=== PATIENT | male | born 1955 | race Caucasian/White ===

== ENCOUNTER 2021-01-17 10:18 | Outpatient (CLI) | payer MEDICARE, SELFPAY | END 2021-01-17 10:19 | disposition home or self-care (01) | LOC: ANHCOVIDVC 10:18 | PROVIDERS: PCP Nurse Practitioner Adult Health | DX: Z23 Encounter for immunization (principal) | CPT/HCPCS: 0001A; 91300 ==

== ENCOUNTER 2021-02-07 10:16 | Outpatient (CLI) | payer MEDICARE, SELFPAY | END 2021-02-07 10:17 | disposition home or self-care (01) | LOC: ANHCOVIDVC 10:19 | PROVIDERS: PCP Nurse Practitioner Adult Health | DX: Z23 Encounter for immunization (principal) | CPT/HCPCS: 0002A; 91300 ==

== ENCOUNTER 2023-08-18 10:04 | Outpatient (CLI) | payer MEDICARE, SELFPAY ==
[2023-08-18 19:08] LABS: Basophils Absolute Auto 0.1 K/mm3 (0.0-0.1); Basophils Percent Auto 2.1 % (0.2-1.2); Eosinophils Absolute Auto 0.4 K/mm3 (0-0.3); Eosinophils Percent Auto 6.7 % (0-4.4); Hematocrit 48.3 % (42.0-52.0); Hemoglobin 15.7 g/dL (14.0-18.0); Immature Granulocyte Absolute 0.05 K/mm3 (0.00-0.031); Immature Granulocyte Percent A 0.9 % (0-0.5); Lymphocytes Absolute Auto 2.16 K/mm3 (0.9-3.2); Mean Corpuscular HGB Conc 32.5 g/dl (32-36); Mean Corpuscular Hemoglobin 31.6 pg (26-34); Mean Corpuscular Volume 97.2 fl (80-100); Mean Platelet Volume 10.7 fl (7.4-10.4); Monocytes Absolute Auto 0.7 K/mm3 (0.1-0.6); Monocytes Percent Auto 11.3 % (2.6-8.5); Neutrophils Absolute Auto 2.5 K/mm3 (1.3-6.7); Platelet Count Result 288 k/mm3 (150-375); Red Blood Count 4.97 M/mm3 (4.6-6.20); Red Cell Distribution Width 12.1 % (11.5-14.5); White Blood Count 5.8 K/mm3 (4.5-10.0)
[2023-08-18 20:02] LABS: Alanine Aminotransferase 22 U/L (6-50); Albumin Level 4.5 g/dL (3.5-5.1); Alkaline Phosphatase 74 U/L (38-126); Anion Gap 4 mmol/L (8-16); Aspartate Amino Transferase 53 U/L (17-59); Bilirubin,Total 0.8 mg/dL (0.2-1.3); Blood Urea Nitrogen 12 mg/dL (9-20); Calcium 9.3 mg/dL (8.4-10.2); Carbon Dioxide 34 mmol/L (22-30); Chloride 97 mmol/L (98-107); Estimated Glomerular Filt Rate > 60; Free T4 Free Thyroxine 0.97 ng/mL (0.78-2.19); Glucose 87 mg/dL (65-110); Sodium 135 mmol/L (137-145)
[2023-08-22 13:22] LABS: Testosterone Free 67.5 pg/mL (35.0-155.0); Testosterone Total 523 ng/dL (250-1100)
== END 2023-08-18 10:05 | disposition home or self-care (01) ==
PROVIDERS: PCP Nurse Practitioner Adult Health; Visit Provider Nurse Practitioner Adult Health
DX: R53.83 Other fatigue (principal); R63.4 Abnormal weight loss
CPT/HCPCS: 36415; 80053; 84402; 84403; 84439; 84443; 85025

== ENCOUNTER 2023-08-19 11:07 | Outpatient (CLI) | payer MEDICARE, SELFPAY ==
[2023-08-21 14:42] LABS: Albumin 4.4 g/dL (3.8-4.8); Alpha 1 Globulin 0.3 g/dL (0.2-0.3); Alpha 2 Globulin 0.5 g/dL (0.5-0.9); Beta 1 Globulin 0.5 g/dL (0.4-0.6)
[2023-08-24 19:05] LABS: PSA, Free 0.17 ng/mL; PSA, Total 0.9 ng/mL (<=4.0)
== END 2023-08-19 11:08 | disposition home or self-care (01) ==
LOC: ANHGOSHLAB 11:10
PROVIDERS: PCP Nurse Practitioner Adult Health; Visit Provider Nurse Practitioner Adult Health
DX: D72.824 Basophilia (principal); R53.83 Other fatigue
CPT/HCPCS: 36415; 84153; 84154; 84155; 84165; 86038

== ENCOUNTER → 2023-08-21 09:54 | Outpatient (CLI) | payer MEDICARE, SELFPAY ==
--- NOTE | ~2023-08-21 | CT_ITS ---
Clinical Indication: Abnormal weight loss CT Scan of the Chest, Abdomen, and Pelvis without Contrast: Technique: Contiguous sections were acquired throughout the chest, abdomen, and pelvis without IV con trast administration. Dose reduction technique was used on this scan by utilizing automated exposure control and iterative reconstruction technique. The dose-length product (DLP) was 1093.60 mGy-cm. Findings: There is no evidence of any significant mediastinal, hilar or axillary lymphadenopathy. The mediastin al soft tissues appear normal. There is no evidence of pleural or pericardial effusion. The lungs are clear. No pulmonary nodules or infiltrates are noted. Multiple hepatic cysts are present. The spleen, pancreas, gallbladder, adrenals and left kidney are w ithin normal limits. Punctate nonobstructing right renal stone noted. No evidence of aortic aneurysm. No lymphadenopathy. No bowel obstruction or bowel wall thickening. There is no evidence to suggest acute appendicitis. Urinary bladder is unremarkable. No pelvic mass seen. No ascites. Impression: Punctate nonobstructing right renal stone. Multiple hepatic cysts. Reviewed, dictated and finalized at [facility]. Impression: Punctate nonobstructing right renal stone. Multiple hepatic cysts.
== END ==
PROVIDERS: PCP Nurse Practitioner Adult Health; Visit Provider Nurse Practitioner Adult Health
DX: R63.4 Abnormal weight loss (principal); N20.0 Calculus of kidney; K76.89 Other specified diseases of liver
CPT/HCPCS: 71250; 74176

== ENCOUNTER 2023-09-11 08:40 | Outpatient (CLI) | payer MEDICARE, SELFPAY ==
[2023-09-18 18:29] LABS: Testosterone Free 47.9 pg/mL (35.0-155.0); Testosterone Total 366 ng/dL (250-1100)
== END 2023-09-11 08:41 | disposition home or self-care (01) ==
LOC: ANHGOSHLAB 08:41
PROVIDERS: PCP Nurse Practitioner Adult Health; Visit Provider Nurse Practitioner Adult Health
DX: R53.83 Other fatigue (principal); D72.824 Basophilia
CPT/HCPCS: 36415; 84402; 84403

== ENCOUNTER 2023-09-15 11:11 | Outpatient (CLI) | payer MEDICARE, SELFPAY ==
[2023-09-15 19:29] LABS: Cholesterol 195 mg/dL (0-200); HDL Direct 42 mg/dL; Triglycerides 129 mg/dL (<150)
[2023-09-15 19:40] LABS: LDL Cholesterol Direct 114 mg/dL
== END 2023-09-15 11:12 | disposition home or self-care (01) ==
PROVIDERS: PCP Nurse Practitioner Adult Health; Visit Provider Nurse Practitioner Adult Health
DX: E78.5 Hyperlipidemia, unspecified (principal)
CPT/HCPCS: 36415; 80061

== ENCOUNTER 2023-10-06 15:46 | Outpatient (CLI) | payer MEDICARE, SELFPAY ==
[2023-10-06 16:08] LABS: Basophils Absolute Auto 0.1 K/mm3 (0.0-0.1); Basophils Percent Auto 1.3 % (0.2-1.2); Eosinophils Absolute Auto 0.2 K/mm3 (0-0.3); Eosinophils Percent Auto 3.2 % (0-4.4); Hematocrit 43.4 % (42.0-52.0); Hemoglobin 14.8 g/dL (14.0-18.0); Immature Granulocyte Absolute 0.07 K/mm3 (0.00-0.031); Lymphocytes Absolute Auto 1.62 K/mm3 (0.9-3.2); Lymphocytes Percent Auto 22.8 % (18.3-44.2); Mean Corpuscular HGB Conc 34.1 g/dl (32-36); Mean Corpuscular Hemoglobin 31.1 pg (26-34); Mean Corpuscular Volume 91.2 fl (80-100); Mean Platelet Volume 9.4 fl (7.4-10.4); Monocytes Absolute Auto 0.7 K/mm3 (0.1-0.6); Monocytes Percent Auto 10.3 % (2.6-8.5); Neutrophils Absolute Auto 4.4 K/mm3 (1.3-6.7); Neutrophils Percent Auto 61.4 % (45.5-73.1); Platelet Count Result 279 k/mm3 (150-375); Red Blood Count 4.76 M/mm3 (4.6-6.20); Red Cell Distribution Width 11.9 % (11.5-14.5); White Blood Count 7.1 K/mm3 (4.5-10.0)
[2023-10-06 20:26] LABS: Alanine Aminotransferase 25 U/L (6-50); Albumin Level 4.3 g/dL (3.5-5.1); Alkaline Phosphatase 80 U/L (38-126); Anion Gap 7 mmol/L (8-16); Aspartate Amino Transferase 36 U/L (17-59); Bilirubin,Total 0.5 mg/dL (0.2-1.3); Blood Urea Nitrogen 12 mg/dL (9-20); Calcium 8.8 mg/dL (8.4-10.2); Carbon Dioxide 30 mmol/L (22-30); Chloride 93 mmol/L (98-107); Estimated Glomerular Filt Rate > 60; Glucose 78 mg/dL (65-110); Potassium 4.2 mmol/L (3.4-5.0); Sodium 130 mmol/L (137-145)
== END 2023-10-06 15:47 | disposition home or self-care (01) ==
LOC: ANHLAB 15:49
PROVIDERS: PCP Nurse Practitioner Adult Health; Visit Provider Internal Medicine Hematology & Oncology
DX: D72.829 Elevated white blood cell count, unspecified (principal)
CPT/HCPCS: 36415; 80053; 85025; 88184

== ENCOUNTER 2024-04-12 12:23 | Outpatient (CLI) | payer MEDICARE, SELFPAY ==
[2024-04-12 12:40] LABS: Basophils Absolute Auto 0.1 K/mm3 (0.0-0.1); Basophils Percent Auto 1.3 % (0.2-1.2); Eosinophils Absolute Auto 0.2 K/mm3 (0-0.3); Eosinophils Percent Auto 3.2 % (0-4.4); Hematocrit 44.1 % (42.0-52.0); Hemoglobin 14.8 g/dL (14.0-18.0); Immature Granulocyte Absolute 0.06 K/mm3 (0.00-0.031); Lymphocytes Absolute Auto 1.51 K/mm3 (0.9-3.2); Lymphocytes Percent Auto 23.9 % (18.3-44.2); Mean Corpuscular HGB Conc 33.6 g/dl (32-36); Mean Corpuscular Volume 92.3 fl (80-100); Mean Platelet Volume 9.7 fl (7.4-10.4); Monocytes Absolute Auto 0.9 K/mm3 (0.1-0.6); Monocytes Percent Auto 14.4 % (2.6-8.5); Neutrophils Absolute Auto 3.6 K/mm3 (1.3-6.7); Neutrophils Percent Auto 56.2 % (45.5-73.1); Platelet Count Result 271 k/mm3 (150-375); Red Blood Count 4.78 M/mm3 (4.6-6.20); Red Cell Distribution Width 12.3 % (11.5-14.5); White Blood Count 6.3 K/mm3 (4.5-10.0)
[2024-04-12 16:35] LABS: Alanine Aminotransferase 20 U/L (6-50); Albumin Level 4.1 g/dL (3.5-5.1); Alkaline Phosphatase 63 U/L (38-126); Anion Gap 2 mmol/L (4-12); Aspartate Amino Transferase 32 U/L (17-59); Bilirubin,Total 0.7 mg/dL (0.2-1.3); Blood Urea Nitrogen 11 mg/dL (9-20); Carbon Dioxide 30 mmol/L (22-30); Chloride 98 mmol/L (98-107); Estimated Glomerular Filt Rate > 60; Glucose 75 mg/dL (65-110); Potassium 4.5 mmol/L (3.4-5.0); Sodium 130 mmol/L (137-145)
[2024-04-13 15:51] LABS: Blood Urea Nitrogen 11 mg/dL (8-26); Carbon Dioxide 31 mmol/L (22-30); Chloride 93 mmol/L (98-109); Estimated Glomerular Filt Rate > 60; Glucose 79 mg/dL (70-105); Ionized Calcium (POC) 1.22 mmol/L (1.11-1.31); Potassium 4.4 mmol/L (3.5-4.9); Sodium 133 mmol/L (138-146)
== END 2024-04-12 12:24 | disposition home or self-care (01) ==
PROVIDERS: PCP Nurse Practitioner Adult Health; Visit Provider Internal Medicine Hematology & Oncology
DX: D72.829 Elevated white blood cell count, unspecified (principal)
CPT/HCPCS: 36415; 80047; 80053; 85025

== ENCOUNTER 2024-06-28 09:07 | Outpatient (CLI) | payer MEDICARE, SELFPAY ==
[2024-06-28 18:58] LABS: Alanine Aminotransferase 23 U/L (6-50); Albumin Level 4.4 g/dL (3.5-5.1); Alkaline Phosphatase 74 U/L (38-126); Anion Gap 6 mmol/L (4-12); Aspartate Amino Transferase 69 U/L (17-59); Bilirubin,Total 0.6 mg/dL (0.2-1.3); Blood Urea Nitrogen 10 mg/dL (9-20); Carbon Dioxide 33 mmol/L (22-30); Chloride 96 mmol/L (98-107); Cholesterol 193 mg/dL (0-200); Estimated Glomerular Filt Rate > 60; Glucose 80 mg/dL (65-110); HDL Direct 49 mg/dL; Potassium 5.3 mmol/L (3.4-5.0); Sodium 135 mmol/L (137-145); Triglycerides 101 mg/dL (<150)
[2024-06-28 19:09] LABS: LDL Cholesterol Direct 120 mg/dL
[2024-06-28 19:29] LABS: Prostate Specific Antigen 1.2 ng/mL (< OR = 4.0)
[2024-07-03 11:53] LABS: Testosterone Free 83.7 pg/mL (35.0-155.0); Testosterone Total 566 ng/dL (250-1100)
== END 2024-06-28 09:08 | disposition home or self-care (01) ==
LOC: ANHBWCLAB 09:08
PROVIDERS: PCP Nurse Practitioner Adult Health; Visit Provider Nurse Practitioner Adult Health
DX: Z12.5 Encounter for screening for malignant neoplasm of prostate (principal); E78.5 Hyperlipidemia, unspecified; R79.89 Other specified abnormal findings of blood chemistry
CPT/HCPCS: 36415; 80053; 80061; 84153; 84402; 84403; G0103

== ENCOUNTER 2024-07-07 13:32 | Outpatient (CLI) | payer MEDICARE, SELFPAY ==
[2024-07-07 21:15] LABS: Potassium 4.2 mmol/L (3.4-5.0)
== END 2024-07-07 13:33 | disposition home or self-care (01) ==
LOC: ANHBWCLAB 13:34
PROVIDERS: PCP Nurse Practitioner Adult Health; Visit Provider Nurse Practitioner Adult Health
DX: E87.5 Hyperkalemia (principal)
CPT/HCPCS: 36415; 84132

== ENCOUNTER 2024-12-02 07:52 | Outpatient (CLI) | payer MEDICARE, SELFPAY ==
--- OUTSIDE RECORDS SUMMARY | 2024-12-02 07:57 | XMS_ITS | Clinical Summary ---
Author Organization [id number] [place] Address [address] [place] [id number] Care Team Providers Care Electronic Equipment Repairmen Name Role Phone Maribel Castillo NP Primary Care Provider [phone] Allergies No known active allergies Medications lisinopril (PRINIVIL,ZESTR IL) 5 mg tablet TAKE ONE TABLET BY MOUTH ONCE DAILY 90 6 5 Active triamcinolone (NASACORT AQ) 55 mcg nasal inhaler spray 2 spray by intranasal route every day in each nostril 1 4 2 Active cetirizine (ZyrTEC) 10 mg tablet take 1 tablet (10MG) by oral route every day 0 2 Active zolpidem (AMBIEN) 5 mg tablet take 2 tablet (10MG) by oral route every day at bedtime [address] (NexIUM) 40 mg capsule take 1 capsule (40MG) by oral route every day 0 2 Active ALPRAZolam (XANAX) 0.5 mg tablet Take 1 tablet (0.5 mg total) by mouth nightly as needed for anxiety Active buPROPion XL (WELLBUTRIN XL) 300 mg 24 hr tablet Take 1 tablet (300 mg total) by mouth daily Active aspirin 81 mg enteric coated tablet Take 1 tablet (81 mg total) by mouth daily Pt takes in evening. Active Active Problems Problem Noted Date Diagnosed Date Encounter for screening colonoscopy 05/26/2018 Overview (05/26/2018): Added automatically from request for surgery [id number] Immunizations Name Administration Dates Next Due Influenza, Split 11/07/2010 Influenza, Trivalent, IM (MDV) 09/13/2014 MMR 10/02/2011 Surgical History Surgery Date Site/Laterality Comments OTHER SURGICAL HISTORY 11/03/2011 - 11/02/2012 right elbow pain COLONOSCOPY 11/09/2007 CATARACT EXTRACTION 01/02/2024 - 02/01/2024 Right COLONOSCOPY 08/03/2018 - 09/02/2018 Medical History Medical History Date Comments Hx Other Medical 1995 vocal cord surg dina/growths Hx Other Medical 2004 sinus surgery Hx Other Medical vocal chord herbert niya Hx Other Medical sinus surgery Gastroesophageal reflux disease GERD Hypertension Family History Medical History Relation Name Comments Stomach cancer Father Cancer -gastr ic; Cause of : Cancer -gastric Osteoporosis Mother Osteoporosis; Other Mother Alive and well; /Pagents diseaes; Relation Name Status Comments Father (Age 85) Mother Alive Social History Tobacco Use Types Packs/Day Years Used Date Smoking Tobacco: Never Smokeless Tobacco: Never Alcohol Use Standard Drinks/Week Comments Yes 0 (1 standard drink = 0.6 oz pur e alcohol) AUDIT-C Answer Date Recorded Q1: How often do you have a drink containing alcohol? 4 or more times a week 05/11/2024 Q2: How many drinks containi ng alcohol do you have on a typical day when you are drinking? 3 or 4 Q3: How often do you have si x or more drinks on one occasion? Less than monthly 05/11/2024 Personal Safety Answer Date Recorded Have you ever been in or are you currently in a harmful physical or emotional relationship or is someone making you feel afraid or unsafe? Denies 05/12/2024 Sex and Gender Information Value Date Recorded Sex Assigned at Not on file Legal Sex Male 7:57 PM [employer] Gender Identity Not on file Sexual Orientation Not on file Obstetrics History Last Filed Vital Signs Vital Sign Reading Time Taken Comments Blood Pressure 126/79 05/12/2024 10:23 AM CDT Pulse 75 05/12/2024 10:23 AM CDT Temperature 36.7 ??C (98 ??F) 05/12/2024 10:23 AM CDT Respiratory Rate 16 05/12/2024 10:23 AM CDT Oxygen Saturation 100% 05/12/2024 10:23 AM CDT Inhaled Oxygen Concentration - - Weight 93 kg (205 lb) 08/25/2018 8:55 AM CDT Height 180.3 cm (5' 11 ) 08/25/2018 8:55 AM CDT Body Mass Index 28.59 08/25/2018 8:55 AM CDT Plan of Treatment Health Maintenance Due Date Last Done Comments Fall Risk Assessment 1955 Hepatitis C Screening 1955 Hepatitis B Screening 1973 Zoster Vaccine (1 of 2) 2005 Depression Screening 07/21/2018 07/21/2017, 07/14/20 Prostate Cancer Screening-PSA 07/16/2019 07/16/2017 Well Visit 65+ 2020 Covid-19 Vaccine (4 - 2023-2 5 season) 2024 02/14/2021, 02/07/2021, 01/17/2021, Additional history exists Influenza Vaccine (#1) 2024 , 08/30/2022, 08/03/2022, Additional history exists Pneumococcal vaccine 65+ (3 of 3 - PPSV23 or PCV20) 08/06/2026 08/06/2021, 11/30/2019 DTaP/Tdap/Td Vaccine (2 - Td or Tdap) 07/10/2027 07/10/2017 Colon Cancer Screening-Colonoscopy 05/12/2034 05/12/2024, 08/25/2018, 08/03/2008 Colon Cancer Screening-CT Colonography Discontinued 05/12/2024, 08/25/2018, 08/03/2008 Colon Cancer Screening-DNA Stool Discontinued 05/12/2024, 08/25/2018, 08/03/2008 Colon Cancer Screening-FIT Discontinued 05/12, 08/25/2018, 08/03/2008 Colon Cancer Screening-Sigmoidoscopy Discontinued 05/12/2024, 08/25/2018, 08/03/2008 Procedures Procedure Name Priority Date/Time Associated Diagnosis Comments COLONOSCOPY 05/12/2024 8:35 AM CDT PSA SCREEN Routine 07/16/2017 7:43 AM CDT Encounter for screening and preventative care from Last 3 Months or Most Recently Relevant to Health Maintenance Results * Colonoscopy (05/12/2024 8:35 AM CDT) Anatomical Region Laterality Modality Other Narrative Procedure Note Elsa Chambers MD - 05/12/2024 8:35 AM CDT [facility] Patient Name: Nam Sawyer Procedure Date: 05/12/2024 8:35 AM Date of : 1955 Admit Type: Outpatient Age: 68 Gender: Male Attending MD: Elsa Chambers M.D. Room: [facility] ENDOSCOPY ROOM 1 Note Status: Finalized Patient Profile: This is a 68 year old male. Father had history of advanced intra-abdominal cancer. Exact primary etiology is not clear. Procedure: Colonoscopy Indications: Screening in patient at increased risk: Familyhistory of 1st-degree relative with colorectal cancer, Last colonoscopy: August 2018 Referring MD: Maribel Castillo, ANP Providers: Elsa Chambers M.D. Impression: - The entire examined colon is normal. - Internal hemorrhoids. - No specimens collected. Recommendation: - Repeat colonoscopy in 6 years for screeningpurposes. Medicines: Monitored Anesthesia Care Complications: No immediate complications. Estimated Blood Loss: Estimated blood loss: none. Procedure: Pre-Anesthesia Assessment: - Prior to the procedure, a History and Physicalwas performed, and patient medications and allergieswere reviewed. The patient's tolerance of previous anesthesia was also reviewed. The risks andbenefits of the procedure and the sedation options and risks were discussed with the patient. All questions were answered, and informed consent was obtained. Prior Anticoagulants: The patient has taken noanticoagulant or antiplatelet agents. ASA Grade Assessment: Per anesthesia note and evaluation. After reviewing the risks and benefits, the patient was deemed in satisfactory condition to undergo the procedure. The benefits, risks and alternatives of theprocedure and sedation were discussed and informed consentwas obtained. All questions were answered. Please referto the signed informed consent document in the medical record. The bowel preparation used was Miralax and bisacodyl tablets via split dose instruction. The scope was passed under direct vision. The Pediatric Colonoscope [id number]-H190L [id number] was introducedthrough the anus and advanced to the the cecum, identifiedby appendiceal orifice and ileocecal valve. Thequality of the bowel preparation was good. Bowel prep was administered using a split dose. Findings: The perianal and digital rectal examinations were normal. The cecum appeared normal. The colon (entire examined portion) appeared normal. No polyps and no mass lesions noted. Internal hemorrhoids were found during retroflexion. The hemorrhoids were small. Electronically signed by Elsa Chambers M.D. Elsa Chambers M.D. 05/12/2024 9:58:08 AM Number of Addenda: 0 Note Initiated On: 05/12/2024 8:35 AM Procedure Code(s): --- Professional --- G0105, Colorectal cancer screening; colonoscopy on individual at high risk Diagnosis Code(s): --- Professional --- Z80.0, Family history of malignant neoplasm of digestive organs K64.8, Other hemorrhoids CPT copyright 2020 [employer]. All rights reserved. The codes documented in this report are preliminary and upon certified medical coder reviewmay be revised to meet current compliance requirements. Recognized by the [employer] for promoting quality in endoscopy us Elsa Chambers MD ENDOSCOPY PROCEDURES Final Result * PSA screen (07/16/2017 7:43 AM CDT) PSA 0.6 < OR = 4.0 ng/mL [facility] - [facility] Comment: The total PSA value from this assay system is standardized against the WHO standard. The test result will be approximately 20% lower when compared to the equimolar-standardized total PSA (Alka Hyndman). Comparison of serial PSA results should be interpreted with this fact in mind. This test was performed using the Siemens chemiluminescent method. Values obtained from different assay methods cannot be used interchangeably. PSA levels, regardless of value, should not be interpreted as absolute evidence of the presence or absence of disease. Blood specimen (specimen) 07/16/2017 7:43 AM CDT 07/16/2017 7:43 AM CDT Narrative [facility] - 07/17/2017 3:45 AM CDT FASTING:YES Resulting Agency Comment Performing Organization Information: ?Site ID: PAT ?Name: [facility] ?[facility] [id number] [address] ?Director: Juan Ramon Verdugo D.O., MPH Adrian Arboleda LAB BLOOD ORDERABLES Final Resul t [facility] from Last 3 Months or Most Recently Relevant to Health Maintenance Insurance [employer] [facility] [employer] MEDICARE Advance Directives For more information, please contact: [phone] * Full Code (Latest Code Status on File) Date Activated Date Inactivated Comments 05/12/2024 8:56 AM 05/12/2024 2:35 PM * Full Code Date Activated Date Inactivated Comments 05/12/2024 8:56 AM 05/12/2024 8:56 AM * Full Code Date Activated Date Inactivated Comments 08/25/2018 8:46 AM 08/25/2018 12:52 PM * Full Code Date Activated Date Inactivated Comments 08/25/2018 8:46 AM 08/25/2018 8:46 AM Care Teams Electronic Equipment Repairmen Relationship Specialty Start Date End Date Maribel Castillo NP PCP - General Nurse Practitioner 05/26/18
--- OUTSIDE RECORDS SUMMARY | 2024-12-02 07:57 | XMS_ITS | Data Portability ---
Author Organization [place] [facility], Main Office Address [address] [place] [address] Care Team Providers Care Cylinder Handler Name Role Phone FATUMA CALDERA Primary Care Provider [phone] FATUMA CALDERA Referring Provider [phone] Assessment Encounter Date Assessment Date Assessment LastModified by Organization Details LastModified Time 05/09/2023 05/09/2023 I have reconciled the patient's medications post their discharge from inpatient facility. Not available 05/09/2023 15:27:33 Plan of Treatment Reminders Order Date Submit Date Provider Last Modified By Organization Details Last Modified Time Details Appointments None recorded. Lab testosteron e, free + total, serum 2022 023 [facility] (Lab), [address] [place], [address], 3 12:12:05 CBC 2022 023 [facility] (Lab), [address] [place], [address], 3 12:50:05 TSH, serum or plasma 2022 023 [facility] (Lab), [address] [place], [address], 3 14:41:47 vitamin B12 + folate, serum or blood 2022 023 [facility] (Lab), [address] [place], [address], 3 08:19:43 CMP, serum or plasma 2022 023 [facility] ([facility]), [address] [place], [address], 3 14:14:16 Referral cognitive behavioral therapy referral 2022 023 [email or web address] Not available 3 09:28:23 physical therapist referral - [facility]AL [facility] TREAT 2022 023 [email or web address] Not available 22:36:08 Procedures None recorded. Surgeries None recorded. Imaging XR, ankle, 3 or more view 2022 023 [email or web address] [facility] [place], [address], [place], [address], 3 22:36:08 XR, hand, 3 or more view 2022 023 [email or web address] [facility] [place], [address], [place], [address], 3 22:36:08 Medication Orders zolpidem 10 mg tablet 2022 023 [id number], [address] [place], [address], 3 16:00:49 duloxetine 30 mg capsule,del ayed release 2022 023 [email or web address] [id number], [address], [place], [address], 3 14:23:52 alprazolam 0.5 mg tablet 2022 023 YANY [id number] In [facility], [address] , [place], [address], 3 16:29:35 buspirone 5 mg tablet 202204 023 YANY [id number], [address] [facility], [place], [address], 3 14:30:32 Patient TargetsNo targets recorded. Patient Instructions Encounter Date Encounter Id Patient Instructions Last Modified By Organization Details Last Modified Time 04/15/2023 [id number] Fu in 4-6 weeks for insomnia, anxiety, fatigue Not available 04/15/2023 11:37:12 06/06/2023 [id number] mo fu on buspar Not availab le 06/06/2023 14:39:15 Reason for Referral Cognitive Behavioral Therapy Referral for Major depressive disorder Referring Physician: Fatuma Caldera, Family Medicine, Encounter Date: 05/09/2023 Physical Therapist Referral for Left Achilles tendinitis EVAL AND TREAT Referring Physician: Esdras Hurt, Orthopedics, Encounter Date: 07/08/2023 Results Created Date Observation Date Name Description Value Unit Range Abnormal Flag Note LastModifiedBy Organization Detail LastModifiedTime 04/16/2004/16/2023 CBC W/O DIFFE RENTI AL white blood cells 5.8 x10'3 /uL 4.2-10 .8 Not Available [facility] (Lab) [address] [place], [address], 04/16/2023 12:50:05 04/16/20 23 04/16/2023 CBC W/O DIFFE RENTI AL red blood cells 4.72 x10'6 /uL 4.10-5 .80 Not Available [facility] (Lab) [address] [place], [address], 04/16/2023 12:50:05 04/16/20 23 04/16/2023 CBC W/O DIFFE RENTI AL hemoglobin 15.0 g/dL 13.2-1 7.0 Not Available [facility] (Lab) [address] [place], [address], 04/16/2023 12:50:05 04/16/20 23 04/16/2023 CBC W/O DIFFE RENTI AL hematocrit 43.9 % 39.3-5 0.0 Not Available [facility] (Lab) [address] [place], [address], 04/16/2023 12:50:05 04/16/20 23 04/16/2023 CBC W/O DIFFE RENTI AL mean red cell volume 93.0 fL 80.0-9 7.0 Not Available [facility] (Lab) [address] [place], [address], 04/16/2023 12:50:05 04/16/20 23 04/16/2023 CBC W/O DIFFE RENTI AL mean red cell hemoglobin 31.8 pg 27.0-3 3.0 Not Available [facility] (Lab) [address] [place], [address], 04/16/2023 12:50:05 04/16/20 23 04/16/2023 CBC W/O DIFFE RENTI AL mean RBC HGB concentratio n 34.2 g/dL 31.0-3 6.0 Not Available [facility] (Lab) [address] [place], [address], 04/16/2023 12:50:05 04/16/20 23 04/16/2023 CBC W/O DIFFE RENTI AL red cell distribution width 11.9 % 11.8-1 5.5 Not Available [facility] (Lab) [address] [place], [address], 04/16/2023 12:50:05 04/16/20 23 04/16/2023 CBC W/O DIFFE RENTI AL platelets 305 x10'3 /uL 150-40 0 Not Available [facility] (Lab) [address] [place], [address], 04/16/2023 12:50:05 04/16/20 23 04/16/2023 CBC W/O DIFFE RENFARTUN AL mean platelet volume 10.5 fL 9.0-12 .4 Not Available [facility] (Lab) [address] [place], [address], 04/16/2023 12:50:05 04/16/20 23 04/16/2023 COMPR EHENS ANICETO METAB OLIC PANEL sodium 133 mmol/ L 137-14 5 low Not Available [facility] (Lab) [address] [place], [address], 04/16/2023 14:14:16 04/16/20 23 04/16/2023 COMPR EHENS ANICETO METAB OLIC PANEL potassium 4.4 mmol/ L 3.5-5. 1 Not Available [facility] (Lab) [address] [place], [address], 04/16/2023 14:14:16 04/16/20 23 04/16/2023 COMPR EHENS ANICETO METAB OLIC PANEL chloride 94 mmol/ L 98-107 low Not Available [facility] (Lab) [address] [place], [address], 04/16/2023 14:14:16 04/16/20 23 04/16/2023 COMPR EHENS ANICETO METAB OLIC PANEL carbon dioxide 30 mmol/ L 22-30 Not Available [facility] (Lab) [address] [place], [address], 04/16/2023 14:14:16 04/16/20 23 04/16/2023 COMPR EHENS ANICETO METAB OLIC PANEL anion gap 13.4 mmol/ L 14-22 low Not Available [facility] (Lab) [address] [place], [address], 04/16/2023 14:14:16 04/16/20 23 04/16/2023 COMPR EHENS ANICETO METAB OLIC PANEL glucose 85 mg/dL 70-99 Not Available [facility] (Lab) [address] [place], [address], 04/16/2023 14:14:16 04/16/20 23 04/16/2023 COMPR EHENS ANICETO METAB OLIC PANEL BUN 10 mg/dL 8-19 Not Available [facility] (Lab) [address] [place], [address], 04/16/2023 14:14:16 04/16/20 23 04/16/2023 COMPR EHENS ANICETO METAB OLIC PANEL creatinine 0.94 mg/dL 0.66-1 .25 Not Available [facility] (Lab) [address] [place], [address], 04/16/2023 14:14:16 04/16/20 23 04/16/2023 COMPR EHENS ANICETO METAB OLIC PANEL GFR >60 Refer ence Range : [place] ge GFR Healt hy Adult : >60 mL/mi n/1.7 3 m2 Chron ic Kidne y Disea se: 15-60 mL/mi n/1.7 3 m2 Kidne y Failu re: <15/m L/min /1.73 m2 www.n iddk. nih.g ov The MDRD study equat ion has not been valid ated in child ana maria <18 years of age; pregn ant women ; the elder ly >85 years of age; or in some racia l or ethni c subgr oups, such as Hispa nics. Outsi de the valid ated edie eters , estim ated GFR is less accur ate, requi ring clini andreina judgm ent on a case- by-ca se basis . Clini andreina inter preta tion for other races and ages must be made by the clini noy. The MDRD study equat ion has not been valid ated for the evalu ation of serum creat inine relat ed to nutri binta l statu s or medic ation usage . For perso ns <18 years of age, a pedia tric GFR calcu lator is avail able on the NKF websi te: https ://ww w.kid jeanine.samuel jarrell/pr ofess ional s/kdo qi/gf r_cal culat or Not Available [facility] (Lab) [address] [place], [address], 04/16/2023 14:14:16 04/16/20 23 04/16/2023 COMPR EHENS ANICETO METAB OLIC PANEL alkaline phosphatase 61 U/L 38-126 Not Available [facility] (Lab) [address] [place], [address], 04/16/2023 14:14:16 04/16/20 23 04/16/2023 COMPR EHENS ANICETO METAB OLIC PANEL alanine aminotransfe rase 24 U/L 0-50 Not Available [facility] (Lab) [address] [place], [address], 04/16/2023 14:14:16 04/16/20 23 04/16/2023 COMPR EHENS ANICETO METAB OLIC PANEL aspartate aminotransfe rase 30 U/L 15-46 Not Available [facility] (Lab) [address] [place], [address], 04/16/2023 14:14:16 04/16/20 23 04/16/2023 COMPR EHENS ANICETO METAB OLIC PANEL bilirubin, total 0.60 mg/dL 0.20-1 .30 Not Available [facility] (Lab) [address] [place], [address], 04/16/2023 14:14:16 04/16/20 23 04/16/2023 COMPR EHENS ANICETO METAB OLIC PANEL calcium 9.0 mg/dL 8.4-10 .2 Not Available [facility] (Lab) [address] [place], [address], 04/16/2023 14:14:16 04/16/20 23 04/16/2023 COMPR EHENS ANICETO METAB OLIC PANEL total protein 6.7 g/dL 6.3-8. 2 Not Available [facility] (Lab) [address] [place], [address], 04/16/2023 14:14:16 04/16/20 23 04/16/2023 COMPR EHENS ANICETO METAB OLIC PANEL albumin 3.8 g/dL 3.0-4. 4 Not Available [facility] (Lab) [address] [place], [address], 04/16/2023 14:14:16 04/16/20 23 04/16/2023 COMPR EHENS ANICETO METAB OLIC PANEL globulin 2.9 g/dL 2.6-4. 2 Not Available [facility] (Lab) [address] [place], [address], 04/16/2023 14:14:16 04/16/20 23 04/16/2023 COMPR EHENS ANICETO METAB OLIC PANEL A/G ratio 1.3 ratio 1.0-2. 0 Not Available [facility] (Lab) [address] [place], [address], 04/16/2023 14:14:16 04/16/20 23 04/16/2023 TSH W/REF ROWDY FT4 TSH with reflex free T4 1.840 uIU/m L 0.465- 4.680 Not Available [facility] (Lab) [address] [place], [address], 04/16/2023 14:41:47 04/16/2004/16/2023 VITAM IN B12 (KARRI JOSHUA ) vb12 595 pg/mL 239-93 1 Not Available [facility] (Lab) [address] [place], [address], 04/16/2023 15:17:33 04/16/20 23 04/16/2023 FOLAT E, SERUM /PLAS MA folate >20.0 NG/mL 2.76-2 0.0 high Not Available [facility] (Lab) [address] [place], [address], 04/16/2023 15:17:36 04/16/2004/23/2023 TESTO STERO NE, FREE+ TOTAL LC/MS testosterone , total, lc/MS 384.1 NG/dL 264.0- 916.0 This [facility] LC/MS -MS metho d is curre ntly certi fied by the CDC Hormo ne Stand ardiz ation Progr am (HoSt ). Adult male refer ence inter víctor is based on a popul ation of healt hy nonob alfredito males (BMI <30) betwe en 19 and 39 years old. Jyothi archer et.al . JCEM 2017, 102;1 161-1 173. PMID: 10441 103. Not Available [facility] (Lab) [address] [place], [address], 04/23/2023 12:12:05 04/16/20 23 04/23/2023 TESTO STERO NE, FREE+ TOTAL LC/MS testosterone , free 13.17 NG/dL 5.00-2 1.00 Not Available [facility] (Lab) [address] [place], [address], 04/23/2023 12:12:05 04/16/20 23 04/23/2023 TESTO STERO NE, FREE+ TOTAL LC/MS % free testosterone 3.43 % 1.50-4 .20 Perfo rmed at: [facility] - [facility] Swati montiel [address] [facility] , [place] [address] Lab Direc tor: Nikki baech MD, Phone : [phone] Not Available [facility] (Lab) [address] [place], [address], 04/23/2023 12:12:05 01/09/20 23 DEXA, axial skele ton [facility] [address] [place] [address] Patien t Name: CELESTINO DODD Access ion #: [id number] Sex: M : 1955 2 Locati on: RA2 Attend ing Physic aleksandar: KELLY CALDERA Orderi Physic aleksandar: KELLY CALDERA Exam Date: 01/09/20 1:03 PM Exam Name: XR DEXA AXIAL/ HIP/PE LVIS/S PINE Admitt ing Diagno sis(es ): RADIOL OGY REPORT - FINAL EXAM: XR DEXA AXIAL/ HIP/PE LVIS/S PINE HISTOR Y: BONE DENSIT Y FINDIN G COMPAR MOUSTAPHA: None. TECHNI QUE: TECHNI QUE: Dual energy x-ray of absorp tion examin ation of the bilate ral hips and lumbar spine in AP projec tion was perfor med. FINDIN GS: Lumbar Spine (L1-L4 ): The mean bone minera l densit y is 1.59 g/cm2 hydrox yapati te, correl ating with a T-scor e of 3.3. Bilate ral hips: The mean bone minera l densit y is 1.319 g/cm2 calciu m hydrox yapati te, correl ating with a T-scor e of 2.5. Page 1 of 2 [facility] Yoli Name: CELESTINO DODD Access ion #: [id number] Sex: M : 1955 2 Exam Date: 01/09/20 1:03 PM Exam Name: XR DEXA AXIAL/ HIP/PE LVIS/S PINE Admitt ing Diagno sis(es ): IMPRES GUERO: 1. The patien t's lumbar spine T-scor e is consis tent with a normal bone densit y. 2. The patien t's bilate ral hip T-scor e is consis tent with a normal bone densit y. Accord ing to the World Health Organi zation , T-scor e values greate r than -1.0 are normal , values betwee n -1.0 and -2.5 are catego rized as osteop enia, T-scor e of -2.5 or more are catego rized as osteop orosis . Create d and electr onical ly signed by: Jose Armando rider MD Signed Date: 01/09/20 3:16 PM (CT) Dictat ed by: Jose Armando rider MD (CT) (CT) Page 2 of 2 [email or web address] [facility] (Imaging) [address] [place], [address], 01/14/2023 11:42:03 07/08/20 23 XR, hand, 3 or more view No observ ation record ed. [facility] [place] [address], [place], [address], 07/16/2023 09:11:46 07/08/20 XR, ankle , 3 or more view No observ ation record ed. [facility] [place] [address], [place], [address], 07/09/2023 09:06:27 Result Notes None recorded. Problems Name Problem SNOMED Code Status Onset Date Resolution Date Notes Provider Name and Address Organization Details Recorded Time Tenosynov itis of right radial styloid 04894166274 976062 Active 2021 Not Available [facility] 3 13:52:12 Tenosynov itis of left radial styloid 20946726114 831685 Active 2021 Not Available [facility] 3 13:52:12 Pain of left hand 40264772428 9103 Active 2021 Not Available [facility] 3 13:52:12 Pain of left wrist 40382185614 9102 Active 2021 Not Available [facility] 3 13:52:12 Periphera l vascular disease 485726301 Active 2018 Not Available [facility] 3 13:52:12 Anxiety 66010762 Active 2017 Not Available [facility] 3 13:52:12 Essential hypertens ion 92498128 Active 2017 Not Available [facility] 3 13:52:12 Varicose veins of lower extremity 90196440 Active 2018 Not Available [facility] 3 13:52:12 Psoriasis 2893223 Completed 201705/26/2018 Not Available [facility] 3 19:32:03 Allergic rhinitis 60936784 Active 2022 Not Available [facility] 3 13:52:12 Fatigue 22015509 Active 2022 Not Available [facility] 3 13:52:13 Insomnia 318523680 Active 2022 Not Available [facility] 3 13:52:12 Impacted cerumen in left ear 07606930952 55052 Active 2022 Not Available [facility] 3 13:52:12 Heartburn 93607191 Active 2022 Not Available [facility] 3 13:52:12 Major depressiv e disorder 854775093 Active 2022 Not Available [facility] 3 13:52:12 Panic attack 541900310 Active 2022 Not Available [facility] 3 13:52:12 Pain of left ankle joint 84312137636 041780 Active 2022 Not Available [facility] 3 13:52:12 Left Achilles tendiniti s 66473952342 9102 Active 2022 Not Available [facility] 3 13:52:12 Problem Notes None recorded. Procedures Surgical History Date Name Laterality Status Provider Name and Address Organization Details Recorded Time 05/09/20 Transitional_Ca re_Management completed Fatuma Felix RN [employer] 05/09/2023 15:27:33 04/15/20 Cerumen Removal completed Fatuma Caldera NP [address] [facility] [address], [place], [address], [facility] [employer] [facility] 04/15/2023 11:36:34 08/20/20 18 Colonoscopy completed Not Available [facility] 01/02/20 19:31:33 Sinus Surgery completed Not [facility] 01/01/2023 19:31:33 Imaging Results Imaging Date Name Status LastModified by Organiz ation Details LastModified Time 01/08/2023 DEXA, axial skeleton completed [email or web address] [facility] ([facility]) [address] [place], [address], 01/14/2023 11:42:03 07/08/2023 XR, hand, 3 or more view completed [facility] [place] [address], [place], [address], 07/16/2023 09:11:46 07/08/2023 XR, ankle, 3 or more view completed [facility] [place] [address] [facility] [address], [place], [address], 07/09/2023 09:06:27 Procedure Notes None recorded. Medical Equipment None Reported. Allergies No known drug allergies Medications Name Sig Start Date Stop Date Status Note LastModified by Organization Details LastModified Time buspirone 5 mg tablet TAKE 1 TABLET BY MOUTH TWICE A DAY active Not Available Not Available No t Available cefuroxim e axetil 250 mg tablet 02/10 completed Not Available Not Available Not Available lidocaine HCl 2 % mucosal jelly Take 200 mg by mucous route. 02/10 completed Not Available Not Available Not Available aspirin 81 mg tablet,de layed release TAKE 1 TABLET BY MOUTH EVERY DAY active Not Available Not Available No t Available triamcino lone acetonide 0.1 % topical cream APPLY A THIN LAYER TO THE AFFECTED AREA(S) BY TOPICAL ROUTE 2 TIMES PER DAY active Not Available Not Available No t Available alprazola m 0.5 mg tablet TAKE 1 TABLET BY MOUTH EVERY DAY NEEDED for panic active Not Available Not Available No t Available Kenalog 10 mg/mL suspensio n for injection In office injectio n administ ered by the provider 10/15 completed ND: [id number] 4-20 Not Available Not Available Not Available hydroxyzi ne HCl 25 mg tablet TAKE 1-2 TABLETS (25-50 MG TOTAL) BY MOUTH 3 (THREE) TIMES DAILY NEEDED FOR ITCHING. active Not Available Not Available No t Available lisinopri l 5 mg tablet TAKE 1 TABLET BY MOUTH EVERY DAY active Not Available Not Available No t Available levofloxa telma 750 mg tablet Take 1 tablet every day by oral route. 05/26 completed Not Available Not Available Not Available zolpidem 10 mg tablet 1 tab po daily prn sleep 05/09 completed Not Available Not Available Not Available sertralin e 50 mg tablet TAKE 1 TABLET BY MOUTH EVERY DAY 05/09 completed panic attack Not Available Not Available Not Available escitalop lissett 10 mg tablet Take 1 tablet every day by oral route. 04/30 completed Not Available Not Available Not Available duloxetin e 30 mg capsule,d elayed release TAKE 1 CAPSULE BY MOUTH EVERY DAY 06/06 completed stopped taking on May 26 Took for 14 days Not Available Not Available Not Available diazepam 5 mg-7.5 mg-10 mg rectal kit Insert 10 mg by rectal route. 11/30 completed Not Available Not Available Not Available Zyrtec 2017 active Not Available Not Available Not Avai lable ropivacai ne (PF) 5 mg/mL (0.5 %) injection solution Take 2 mg by injectio n route. 10/15 completed Not Available Not Available Not Available Nexium 24HR 10/15 completed Not Available Not Available Not Available Flucelvax Quad 60 mcg (15 mcg x 4)/0.5 mL intramusc ular susp 08/06 completed Not Available Not Available Not Available Vitals Date Recorded Body mass index (BMI) Body height Oxygen saturation Oxygen saturation in Arterial blood by Pulse oximetry Heart rate Respiratory rate Body temperature Body weight Systolic blood pressure Diastolic blood pressure Provider Name and Address Organization Details Last Updated DateTime 3 30.3 kg/m2 180.34 cm 97 % 97 % 91 /min 16 /min 97.9 [degF] 39242.1 9 g 128 mm[Hg] 84 mm[Hg] Not Available [facility] 3 19:31:36 Date Recorded Body height Body mass index (BMI) Body weight Body temperature Heart rate Oxygen saturation Oxygen saturation in Arterial blood by Pulse oximetry Respiratory rate Systolic blood pressure Diastolic blood pressure Provider Name and Address Organization Details Last Updated DateTime 3 180.34 cm 28.9 kg/m2 52023.6 2 g 98 [degF] 88 /min 99 % 99 % 16 /min 136 mm[Hg] 82 mm[Hg] Nora Reeves RN [facility] 3 10:57:39 Date Recorded Body height Body mass index (BMI) Body weight Body temperature Heart rate Oxygen saturation Oxygen saturation in Arterial blood by Pulse oximetry Systolic blood pressure Diastolic blood pressure Provider Name and Address Organization Details Last Updated DateTime 3 180.34 cm 27.5 kg/m2 22304.1 5 g 97.2 [degF] 97 /min 100 % 100 % 142 mm[Hg] 100 mm[Hg] Fatuma Felix RN [facility] 3 15:29:37 Date Recorded Body height Body mass index (BMI) Body weight Body temperature Heart rate Respiratory rate Oxygen saturation Oxygen saturation in Arterial blood by Pulse oximetry Systolic blood pressure Diastolic blood pressure Provider Name and Address Organization Details Last Updated DateTime 3 180.34 cm 27.8 kg/m2 71215.2 8 g 97.1 [degF] 90 /min 20 /min 98 % 98 % 138 mm[Hg] 82 mm[Hg] Fatuma Felix RN [facility] 3 14:10:33 Date Recorded Body height Body mass index (BMI) Body weight Provider Name and Address Organization Details Last Updated DateTime 07/08/2023 180.34 cm 27.9 kg/m2 87345.47 g CAROLINA Magana [facility] 07/08/2023 10:43:11 Social History Question Answer Notes LastModified by Organization Details LastModified Time Tobacco Smoking Status Never Smoker Not Available [facility] 01/01/2023 19:31:25 Do You Have An Advance Directive? No [email or web address].[id number] [id number] Information not available 01/01/2023 What Is Your Level Of Alcohol Consumption? Occasional [email or web address].[id number] [id number] Information not available 01/01/2023 Do You Wear A Helmet When Biking? Yes MIGRATION.0301 [id number] Information not available 01/01/2023 Are You Blind Or Do You Have Difficulty Seeing? No Macular Degenerati on, Eye Exam Q 6 Months [id number].[id number] [id number] Information not available 01/01/2023 Is Blood Transfusion Acceptable In An Emergency? Yes Information not available 05/09/2023 What Is Your Level Of Caffeine Consumption? Moderate [id number].[id number] [id number] Information not available 01/01/2023 What Is Your Code Status? Full Code [email or web address].[id number] Information not available 01/01/2023 In The 14 Days Before Symptom Onset, Have You Had Close Contact With A Laboratory-confi rmed COVID-19 While That Case Was Ill? No MIGRATION.0301 [id number] Information not available 01/01/2023 In The 14 Days Before Symptom Onset, Have You Had Close Contact With A Person Who Is Under Investigation For COVID-19 While That Person Was Ill? No MIGRATION.0301 [id number] Information not available 01/01/2023 Are You Currently Employed? No Retired Information not available 06/06/2023 Are You Deaf Or Do You Have Serious Difficulty Hearing? No MIGRATION.0301 [id number] Information not available 01/01/2023 What Type Of Diet Are You Following? REGULAR MIGRATION.0301 [id number] Information not available 01/01/2023 Have There Been Any Changes To Your Family Or Social Situation? No MIGRATION.0301 [id number] Information not available 01/01/2023 Are There Any Guns Present In Your Home? No MIGRATION.0301 [id number] Information not available 01/01/2023 Do You Use Insect Repellent Routinely? Yes MIGRATION.0301 [id number] Information not available 01/01/2023 Where Do You Live? [place]House MIGRATION.0301 [id number] Information not available 01/01/2023 Do You Have A Medical Power Of Vp Of [employer]? No MIGRATION.0301 [id number] Information not available 01/01/2023 What Was The Date Of Your Most Recent Tobacco Screening? 08/06/2021 MIGRATION.0301 [id number] Information not available 01/01/2023 Have You Ever Been Counseled For Unhealthy Alcohol Use? No MIGRATION.0301 [id number] Information not available 01/01/2023 Do You Have Any Pets? No MIGRATION.0301 [id number] Information not available 01/01/2023 What Is Your Relationship Status? MIGRATION.0301 [id number] Information not available 01/01/2023 Do You Use Your Seat Belt Or Car Seat Routinely? Yes MIGRATION.0301 [id number] Information not available 01/01/2023 Do You Have Smoke And Carbon Monoxide Detectors In Your Home? Yes MIGRATION.0301 [id number] Information not available 01/01/2023 Are You Passively Exposed To Smoke? No MIGRATION.0301 [id number] Information not available 01/01/2023 Are There Any Smokers In Your House? No MIGRATION.0301 [id number] Information not available 01/01/2023 Do You Participate In Social [employer]? Yes MIGRATION.0301 [id number] Information not available 01/01/2023 Do You Feel Stressed (tense, Restless, Nervous, Or Anxious, Or Unable To Sleep At Night)? [id number] MIGRATION.0301 [id number] Information not available 01/01/2023 Do You Use Any Illicit Or Recreational Drugs? No MIGRATION.0301 [id number] Information not available 01/01/2023 Do You Use Sunscreen Routinely? Yes MIGRATION.0301 [id number] Information not available 01/01/2023 Has Tobacco Cessation Counseling Been Provided? No MIGRATION.0301 025887 Information not available 01/01/2023 Have You Recently Traveled Abroad? No MIGRATION.0301 [id number] Information not available 01/01/2023 Are You Currently In School? No MIGRATION.0301 [id number] Information not available 01/01/2023 Do You Have Any Dietary Restrictions? No MIGRATION.0301 [id number] Information not available 01/01/2023 Do You Or Have You Ever Used Any Other Forms Of Tobacco Or Nicotine? No MIGRATION.0301 807676 Information not available 01/01/2023 Sex: Male Functional Status Question Answer Note LastModified by Organizat ion Details LastModified Time Do you have difficulty walking or climbing stairs? No MIGRATION.[id number] 026 Information not available 01/01/2023 Do you have transportation difficulties? No MIGRATION.[id number] 026 Information not available 01/01/2023 Are you able to walk? YESWOREST MIGRATION.[id number] 026 Information not available 01/01/2023 Do you have difficulty doing errands alone? No MIGRATION.5768535 026 Information not available 01/01/2023 Are you able to care for yourself? Yes MIGRATION.6169382 026 Information not available 01/01/2023 Do you have difficulty dressing or bathing? No MIGRATION.8443144 026 Information not available 01/01/2023 What is your exercise level? Occasional Information not available 06/06/2023 Mental Status Question Answer Note LastModified by Organizat ion Details LastModified Time Do you have difficulty concentrating, remembering or making decisions? No MIGRATION.[id number] 6 Information not available 01/01/2023 Family History Relationship Description Onset Age of this Age Resolved Age Notes LastModified by Organization Details LastModified Time Father Family history of malignant neoplasm MIGRATION.397 [id number] Not available 01/01/2023 19:31:33 Maternal Grandmother Hypertensive disorder MIGRATION.157 [id number] Not available 01/01/2023 19:31:33 Maternal Grandmother Myocardial infarction MIGRATION.230 [id number] Not available 01/01/2023 19:31:33 Maternal Uncle Hypertensive disorder MIGRATION.951 [id number] Not available 01/01/2023 19:31:33 Maternal Uncle Myocardial infarction MIGRATION.883 [id number] Not available 01/01/2023 19:31:33 Maternal Grandfather Myocardial infarction MIGRATION.326 [id number] Not available 01/01/2023 19:31:33 Brother Glaucoma MIGRATION.606 [id number] Not available 01/01/2023 19:31:33 Father Family history of stroke [email or web address] Not available 03/2023 10:44:38 Medical History Condition Response SKIN PROBLEMS Y HEADACHES/MIGRAINES Y USE OF BLOOD THINNERS Y ANXIETY DISORDER Y SLEEP DISORDER Y HYPERTENSION Y Immunizations Vaccine Type Date Status Note Provider Nam e and Address Organization Details Recorded Time influenza, unspecified formulation 2 completed Not Available [facility] 01/01/2023 19:32:44 COVID-19, mRNA, LNP-S, PF, 100 mcg/0.5mL dose or 50 mcg/0.25mL dose 1 completed Not Available [facility] 01/01/2023 19:32:45 COVID-19, mRNA, LNP-S, PF, 100 mcg/0.5mL dose or 50 mcg/0.25mL dose 1 completed Not Available [facility] 01/01/2023 19:32:45 Influenza, split virus, quadrivalent, preservative 9 completed Not Available [facility] 01/01/2023 19:32:45 Influenza, split virus, quadrivalent, preservative 7 completed Not Available [facility] 01/01/2023 19:32:45 Pneumococcal conjugate PCV 13 1 completed Not Available [facility] 01/01/2023 19:32:45 Influenza, high-dose, quadrivalent, PF 1 completed Not Available [facility] 01/01/2023 19:32:46 pneumococcal polysaccharide PPV23 0 completed Not Available [facility] 01/01/2023 19:32:46 Influenza, split virus, quadrivalent, PF [address] [facility] 01/01/2023 19:32:46 influenza, unspecified formulation 3 completed Fatuma Caldera, LYNETTE [address] [facility] [address], [place], [address], [facility] [employer] 09/01/2023 22:59:07 Past Encounters Encounter ID Performer Location Encounter Start Date Encounter Closed Date Diagnosis/Indication Diagnosis SNOMED-CT Code Diagnosis ICD10 Code Diagnosis Note [id number] [facility] [address] [facility] , [place] [address] 08/06/2021 00:00:00 08/06/2021 11:10:46 [id number] [facility] [address] [place] [address] 07/09/2022 00:00:00 07/09/2022 12:14:11 [id number] [facility] [address] [place] [address] 08/07/2022 00:00:00 08/07/2022 16:25:11 [id number] [facility] [address] [place] [address] 10/15/2022 00:00:00 10/15/2022 12:22:[id number] [address] 12/11/2022 00:00:00 12/11/2022 11:15:10 [id number] Fatuma Caldera NP [address] [address] 04/15/2023 10:36:44 04/15/2023 11:49:56 Anxiety 99460550 F41.9 will try to help get better sleep. Essential hypertension 00814381 I10 Lisinopril 5 mg po dailyASA 81 mg po daily<2 gm sodium diet. Allergic rhinitis 201959 04 J30.9 zyrtec 10 mg po daily, prn symptoms.N asocort. Fatigue 48594183 R53.83 Labs ordered. Work on sleep hygeine. Consider sleep study. Insomnia 362171207 G47.0 0 zolpidem 10 mg po nightly. Can try at 5 mg po nightly to start. Impacted c erumen in left ear [id number] 943528 H61.22 irrigated 04/15/23 [id number] Fatuma Caldera NP [address] [address] 05/09/2023 15:21:12 05/09/2023 16:29:10 Heartburn 79368433 R12 Nexium 20 mg otc. Diet mods Major depr essive disorder 933898422 F32.9 Duloxetine 30 mg po daily. FU in 4-6 weeks.Nadja ent voices he doesn't want to go down the path of seeing therapy and psych. Panic attack 520371496 F 41.0 Alprazolam prn. Seen in [facility] [id number] Z76.89 [id number] Fatuma Caldera NP [address] [address] 06/06/2023 14:00:24 06/06/2023 14:43:05 Panic attack 620006914 F41.0 Hydroxyzin e prn. Anxiety 19502492 F41.9 Buspar 5 mg po daily for 1 week, then bid. [id number] JESSIE Shel[facility] [place] [address] [place] [address] 07/08/2023 10:23:56 07/08/2023 11:29:26 Pain of left hand 7968036631 14807 M79.642 Pain of le ft ankle joint 6676577552 8303549 M25.572 Left Achil les tendinitis [id number] 77510 M76.62 Patient has developed atraumatic calcific achilles tendinitis over the insertion of the Achilles in the left ankle. we discussed that this likely developed over time but he acutely cause some irritation and inflammati on to the tendon. we discussed possible treatment options including rest, oral anti-infla mmatories, topical anti-infla mmatories, bracing, and a referral to physical therapy. patient was unsure if he wanted to go to formal physical therapy so he was provided with home exercises and stretching as well as a referral to physical therapy if he decides he wants to do that. He will follow up as needed if his symptoms persist or worsen. Tenosynovi tis of left radial styloid [id number] 0653907 M65.4 patient has had recurrence of his left wrist pain over the 1st extensor compartmen t. At his last visit on 08/07/2022 he received a corticoste roid injection was provided with a thumb spica brace. he had resolution but after repetitive use his symptoms as return. We discussed possible treatment options including activity modificati on, bracing, oral anti-infla mmatories, topical anti-infla mmatories. Patient was agreeable to this plan and will continue to monitor. Health Concerns Section Related Observation LastModified by Organization Detai ls LastModified Time None Recorded Concern Status LastModified by Organization Details LastModified Time None Recorded Advance Directives Directive N: Payers Encounter Date Sequence Insurance Name Policy Number Policy Almanzar Covered Member ID Almanzar Member ID Guarantor Name 04/15/2023 1 [employer] (MEDICARE REPLACEMENT PPO) [id number] 1 Nam Sawyer [id number] Nam Sawyer 05/09/2023 1 [employer] (MEDICARE REPLACEMENT PPO) [id number] 1 Nam Davisnek [id number] Nam Davisneserg 06/06/2023 1 [employer] (MEDICARE REPLACEMENT PPO) [id number] 1 Nam Davisnek [id number] Nam Davisneserg 07/08/2023 1 [employer] (MEDICARE REPLACEMENT PPO) [id number] 1 Nam Davisalida [id number] Nam Davisjoannaserg Notes Date Note Type Note Provider Name and Address Organization Details Recorded Time 04/15/2023 text/html Here for check u p on meds. lee here today today HTN- good at home.anxiety- flared all of a sudden. Never on meds.labs- would like to recheck a few things. Home bp 105/70, 125/77, 148/96, 110/70, 117/81. No chest pain. 6 weeks ago started feeling fatigued and exhausted. Hard to describe. Has a lot of stress issues. Feeling like not enough energy to get things done. Not currently employed. Has been worried about nexium use on kidneys. States he is having excess worry, stress, and not sleeping without having an alprazolam. states he was prescribed paxil in the past, but never took it. Had been on alprazolam and zolpidem. But not taking the zolpidem currently. Bother last week and visitation this week. Diet- well balanced meals, Drinking 4 cups of coffee. Happy hour later in day, 2 light beer per day.Sleep- Hard time getting rest. Sleeping about 4 hours at a time. Can't fall back to sleep. +snore. Has been tested for sleep apnea in 2016 but couldn't sleep in lab. Fatuma Caldera, LYNETTE [address] [facility], [facility] [address], [place], [address], [facility] [employer] 04/15/2023 11:37:44 05/09/2023 text/html Here with f or ER follow up x 2 and anxiety States he went to [facility] ER on 04/29/23 and 05/04/23Was having anxiety attack and benzo after apt and was calm on the way home. Has tried on lexapro taken for 2 days (Seem to cause tingling in feet, headaches, nausea, more agitated, not sleeping well) and sertraline (hyper) given at 10 pm and woke up in panic at 12 am SEVERE panic and had to call Raymond's brother to calm him down. Brother drove from [facility]. Brother was there a big part of the day to calm him down. Zolpidem (making having bad dreams and only sleeping 3-4 hours max) Last 4 nights not taking and sleeping 3-4 hours so zolpidem wasn't helping. Last couple days anxious and worried when waking up. 930 am took xanax and slept 3 hours. This morning worried and anxious, walked dog, and anxious again. Hydroxyzine helped and layed down for 1 hour. Has had episodes several times before 2017.2017 was last bout of depression with work related stress.This episode is a bit worse than then. Fatuma Caldera NP [address] [place] [address], [place], [address], [employer] 05/09/2023 16:40:56 06/06/2023 text/html Here for check u p on meds. States he stopped taking the duloxetine after taking for 2 weeks.Not sleeping, headache, on edge, nervous, nausea, excess sweating, flushed, hands trembling, woke up at night shivering (not an AC to low issue). Since stopping the medication has been sleeping better.Pt wouldn't like to see therapist or psych. No panic attacks with Cymbalta.States he and his have looked into starting on buspar only and interested in thoughts here. Eating well. Well balanced meals. No nausea and no fever. is feeling that the lexapro and the zoloft caused the panic attacks. 131/80 bp at home today. Fatuma Caldera NP [address], [facility] [address], [place], [address], [employer] 06/06/2023 14:39:41 07/08/2023 text/html 67-year-old male returns to the clinic concerning left thumb/wrist pain and acute left ankle pain. At his last visit on 08/07/2022 he received a corticosteroid injection to the 1st extensor compartment for radiostyloid tenosynovitis And provided with a brace. he states that his symptoms resolved but recently returned after repetitive use and he has since returned to wearing the brace. He also notes that within the last 2 months has began experiencing left ankle pain, localized to the posterior ankle. He states that his symptoms are exacerbated when he is walking barefoot but is relieved when he is wearing shoe. He has not tried anything for this. He denies any injury to his left ankle. JESSIE Shelton [address] [facility], [facility] [address], [place], [address], [facility] 07/16/2023 09:11:51
--- OUTSIDE RECORDS SUMMARY | 2024-12-02 07:57 | XMS_ITS | Referral Summary ---
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 Gender Identity Not on file Sexual Orientation Not on file Last Filed Vital Signs Vital Sign Reading [...] 08/25/2018 8:55 AM CDT Plan of Treatment Not on file Procedures Procedure Name Priority Date/Time Associated Diagnosis Comments COLONOSCOPY 05/12/2024 8:35 AM CDT PSA SCREEN Routine 07/16/2017 7:43 AM CDT Encounter for screening and preventative care from Last 3 Months or Most Recently Relevant to Health Maintenance Results * Colonoscopy (05/12/2024 8:35 AM CDT) Anatomical Region Laterality Modality Other Narrative Procedure Note Elsa Chambers MD - 05/12/2024 8:35 AM CDT [facility] Patient Name: Nam Sawyer Procedure Date: 05/12/2024 8:35 AM Date of : 1955 Admit Type: Outpatient Age: 68 Gender: Male Attending MD: Elsa Chambers M.D. Room: [facility] ENDOSCOPY ROOM 1 Note Status: Finalized Patient [...] under direct vision. The Pediatric Colonoscope PCF-H190L [id number] was introducedthrough the anus and advanced to [...] organs K64.8, Other hemorrhoids CPT copyright 2020 [employer]. All rights reserved. The codes documented in this report are preliminary and upon janitor caretaker reviewmay be revised to meet current compliance requirements. Recognized by the [employer] for promoting quality in endoscopy us Elsa Chambers MD ENDOSCOPY PROCEDURES Final Result * PSA screen (07/16/2017 7:43 AM CDT) PSA 0.6 < OR = 4.0 ng/mL [facility] Comment: The total PSA value from this assay system is standardized against the WHO standard. The test result will be approximately 20% lower when compared to the equimolar-standardized total PSA (Alka Dumas). Comparison of serial PSA results should be [...] Performing Organization Information: ?Site ID: [facility] ?Name: [facility] ?Address: [address] [place] [address] ?Director: Juan Ramon Verdugo D.O., MPH Adrian Arboleda LAB BLOOD ORDERABLES Final Resul t [facility] from Last 3 Months or Most Recently Relevant to Health Maintenance Insurance [employer] [facility] MEDICARE Advance Directives For more information, please contact: [phone] * Full Code (Latest Code Status on File) Date Activated Date Inactivated Comments 05/12/2024 8:56 AM 05/12/2024 2:35 PM * Full Code Date Activated Date Inactivated Comments 05/12/2024 8:56 AM 05/12/2024 8:56 AM * Full Code Date Activated Date Inactivated Comments 08/25/2018 8:46 AM 08/25/2018 12:52 PM * Full Code Date Activated Date Inactivated Comments 08/25/2018 8:46 AM 08/25/2018 8:46 AM Care Teams Dental Patient Coordinator Relationship Specialty Start Date End Date Maribel Castillo NP PCP - General Nurse Practitioner 05/26/18
--- OUTSIDE RECORDS SUMMARY | 2024-12-02 07:57 | XMS_ITS | Clinical Summary ---
Author Organization [facility] Address [address] [place] [address]. [place], [place] [address] [place] [address] Care Team Providers Care Weight Recorder Name Role Phone Fatuma Portillo [facility] Primary Care Provider + Allergies No known active allergies Medications lisinopril (PRINIVIL) 5 MG tablet 1 tablet (5 mg total). Active aspirin EC (ECOTRIN) 81 MG tablet Take 1 tablet (81 mg total) by mouth. Active ALPRAZolam (XANAX) 0.5 MG tablet 1 tablet (0.5 mg total). Active zolpidem (AMBIEN) 10 MG tablet 1 tablet (10 mg total). Active escitalopram (LEXAPRO) 10 MG tablet 1 tablet (10 mg total). Active sertraline (ZOLOFT) 50 MG tablet Take 1 tablet (50 mg total) by mouth daily. 30 tablet 04/29/2023 Active Active Problems Problem Noted Date Diagnosed Date Essential hypertension 11/27/2017 Family History Medical History Relation Comments Stroke Father Heart Attack Maternal Grandfather Heart Attack Maternal Grandmother Stroke Mother Relation Status Comments Father Maternal Grandfather Maternal Grandmother Mother Social History Tobacco Use Types Packs/Day Years Used Date Smoking Tobacco: Never Smokeless Tobacco: Never Tobacco Cessation:Counseling Given: Not Answered Alcohol Use Standard Drinks/Week Comments Yes 20 (1 standard drink = 0.6 oz pu re alcohol) Sex and Gender Information Value Date Recorded Sex Assigned at Not on file Legal Sex Male 4:24 PM CDT Gender Identity Not on file Sexual Orientation Not on file Last Filed Vital Signs Vital Sign Reading Time Taken Comments Blood Pressure 167/104 05/04/2023 6:07 PM CDT Pulse 89 05/04/2023 6:07 PM CDT Temperature 36.5 ??C (97.7 ??F) 05/04/2023 6:07 PM CD T Respiratory Rate 16 05/04/2023 6:07 PM CDT Oxygen Saturation 99% 05/04/2023 6:07 PM CDT Inhaled Oxygen Concentration - - Weight 90 kg (198 lb 6.6 oz) 05/04/2023 4:50 PM CDT Height 177.8 cm (5' 10 ) 05/04/2023 4:50 PM CDT Body Mass Index 28.47 05/04/2023 4:50 PM CDT Plan of Treatment Health Maintenance Due Date Last Done Comments Colorectal Cancer Screening Colonoscopy (10 Years) 1955 Hepatitis C 1973 Zoster Vaccines (1 of 2) 2005 Annual Medicare Wellness Visit 2020 COVID-19 Vaccine ( season) 2024 02/14/2021, 02/07/2021, 01/17/2021, Additional history exists Influenza Adult (#1) 2024 08/03/2022, 09/01/2020, 10/09/2019, Additional history exists Pneumococcal Vaccine: 65+ Years (3 of 3 - PPSV23 or PCV20) 08/06/2026 08/06/2021, 11/30/2019 DTaP, Tdap and Td Vaccines (2 - Td or Tdap) 07/10/2027 07/10/2017 RSV Immunization or 60+ Years (1 - 1-dose 75+ series) 2030 Meningococcal B Vaccine Aged Out No l onger eligible based on patient's age to complete this topic Meningococcal Vaccine Aged Out No yareli jarod eligible based on patient's age to complete this topic RSV Immunizations Under 20 Months Aged Out No longer eligible based on patient's age to complete this topic Insurance A[employer] Care Teams Weight Recorder Relationship Specialty Start Date End Date Fatuma Portillo, BUSINESS DEVELOPMENT SALES EXECUTIVE- [address] [place] [phone] PCP - General NURSE PRACTITIONER 04/29/23
[2024-12-02 18:49] LABS: Add Urine Microscopic? NO; Appearance Urine Clear (Clear); Bilirubin Urine Negative (Negative); Blood Urine Negative (Negative); Color Urine Yellow (Yellow); Glucose Urine UA Negative (Negative); Ketones Urine Negative (Negative); Leukocyte Esterase Ur Negative LEU/UL (Negative); Nitrate Urine Negative (Negative); Protein Urine Negative (Negative); Specific Grav Ur 1.015 (1.001-1.035); Urobilinogen Urine 0.2 mg/dL (<2.0)
[2024-12-02 19:02] LABS: Alanine Aminotransferase 23 U/L (6-50); Albumin Level 3.9 g/dL (3.5-5.1); Alkaline Phosphatase 88 U/L (38-126); Anion Gap 6 mmol/L (4-12); Aspartate Amino Transferase 63 U/L (17-59); Bilirubin,Total 0.6 mg/dL (0.2-1.3); Blood Urea Nitrogen 12 mg/dL (9-20); Calcium 8.9 mg/dL (8.4-10.2); Carbon Dioxide 31 mmol/L (22-30); Chloride 95 mmol/L (98-107); Cholesterol 140 mg/dL (0-200); Estimated Glomerular Filt Rate > 60; Glucose 80 mg/dL (65-110); HDL Direct 35 mg/dL; Potassium 4.8 mmol/L (3.4-5.0); Sodium 132 mmol/L (137-145); Triglycerides 63 mg/dL (<150)
[2024-12-02 19:13] LABS: LDL Cholesterol Direct 92 mg/dL
== END 2024-12-02 07:53 | disposition home or self-care (01) ==
PROVIDERS: PCP Nurse Practitioner Adult Health; Visit Provider Nurse Practitioner Adult Health
DX: E78.5 Hyperlipidemia, unspecified (principal); R31.9 Hematuria, unspecified; R79.89 Other specified abnormal findings of blood chemistry
CPT/HCPCS: 36415; 80053; 80061; 81003; 84402; 84403

== ENCOUNTER 2024-12-08 11:23 | Outpatient (CLI) | payer MEDICARE, SELFPAY ==
[2024-12-08 11:40] LABS: Basophils Absolute Auto 0.1 K/mm3 (0.0-0.1); Basophils Percent Auto 1.2 % (0.2-1.2); Eosinophils Absolute Auto 0.3 K/mm3 (0-0.3); Eosinophils Percent Auto 4.2 % (0-4.4); Hemoglobin 14.5 g/dL (14.0-18.0); Immature Granulocyte Absolute 0.09 K/mm3 (0.00-0.031); Immature Granulocyte Percent A 1.2 % (0-0.5); Lymphocytes Absolute Auto 2.23 K/mm3 (0.9-3.2); Lymphocytes Percent Auto 30.4 % (18.3-44.2); Mean Corpuscular HGB Conc 34.5 g/dl (32-36); Mean Corpuscular Hemoglobin 31.3 pg (26-34); Mean Corpuscular Volume 90.5 fl (80-100); Mean Platelet Volume 8.9 fl (7.4-10.4); Monocytes Absolute Auto 0.9 K/mm3 (0.1-0.6); Monocytes Percent Auto 11.7 % (2.6-8.5); Neutrophils Absolute Auto 3.8 K/mm3 (1.3-6.7); Neutrophils Percent Auto 51.3 % (45.5-73.1); Platelet Count Result 316 k/mm3 (150-375); Red Blood Count 4.64 M/mm3 (4.6-6.20); Red Cell Distribution Width 11.6 % (11.5-14.5); White Blood Count 7.3 K/mm3 (4.5-10.0)
[2024-12-08 12:35] LABS: Anion Gap 7 mmol/L (4-12); Blood Urea Nitrogen 12 mg/dL (9-20); Calcium 9.1 mg/dL (8.4-10.2); Carbon Dioxide 29 mmol/L (22-30); Chloride 94 mmol/L (98-107); Estimated Glomerular Filt Rate > 60; Glucose 90 mg/dL (65-110); Potassium 4.4 mmol/L (3.4-5.0); Sodium 130 mmol/L (137-145)
--- OUTSIDE RECORDS SUMMARY | 2024-12-08 12:58 | XMS_ITS | Clinical Summary ---
Author Organization [facility] [place] Address [address] [place] [address] Care Team Providers Care Call Center Coordinator Name Role Phone Unavailable Primary Care Provider Unavailabl e Allergies No known active allergies Medications ALPRAZolam (XANAX) 0.5 mg tablet 0.5 mg. Active aspirin (ECOTRIN EC) 81 mg Tablet, Delayed Release (E.C.) Take 81 mg by mouth. Active lisinopriL (PRINIVIL) 5 mg tablet 5 mg. Active buPROPion HCL (WELLBUTRIN XL) 300 mg Extended Release 24 hour tablet Take 300 mg by mouth daily in the morning. Active busPIRone (BUSPAR) 7.5 mg Tablet Take 7.5 mg by mouth. Active esomeprazole (NexIUM) 20 mg Capsule, Delayed Release(E.C.) Take 20 mg by mouth daily before breakfast. Active triamcinolone acetonide (NASACORT AQ) 55 mcg nasal spray Administer 1 Morton in each nostril daily. Active cetirizine (ZyrTEC) 10 mg tablet Take 10 mg by mouth daily. Active testosterone 10 mg/mL topical cream compound Apply to affected area see administration instructions. Active Active Problems No known active problems Family History Medical History Relation Name Comments Heart Disease Brother 3 Cancer Father Heart Disease Mother Relation Name Status Comments Brother 1 Alive Brother 2 Alive Brother 3 Father Mother Sister 1 Alive Sister 2 Social History Tobacco Use Types Packs/Day Years Used Date Smoking Tobacco: Never Smokeless Tobacco: Never Tobacco Cessation:Counseling Given: Not Answered Alcohol Use Standard Drinks/Week Comments Yes 0 (1 standard drink = 0.6 oz pur e alcohol) Sex and Gender Information Value Date Recorded Sex Assigned at Not on file Legal Sex Male 9:28 AM CDT Gender Identity Not on file Sexual Orientation Not on file Last Filed Vital Signs Vital Sign Reading Time Taken Comments Blood Pressure 150/94 04/12/2024 1:15 PM CDT Pulse 85 04/12/2024 1:13 PM CDT Temperature 36.5 ??C (97.7 ??F) 04/12/2024 1:13 PM CD T Respiratory Rate 14 04/12/2024 1:13 PM CDT Oxygen Saturation 95% 04/12/2024 1:13 PM CDT Inhaled Oxygen Concentration - - Weight 88.9 kg (196 lb) 04/12/2024 1:13 PM CDT Height 180.3 cm (5' 11 ) 10/06/2023 2:48 PM HELP DESK REP Body Mass Index 27.34 10/06/2023 2:48 PM HELP DESK REP Plan of Treatment Upcoming Encounters Date Type Department Care Team (Late st Contact Info) Description 12/14/2024 1:00 PM HELP DESK REP Office Visit [facility] [place] [address] [place] [address] [facility] [address] [place] [address] Larry Villanueva MD [address] [facility] [address] [place] [address] Health Maintenance Due Date Last Done Comments Pre-Diabetes and Diabetes Screening 1955 DTAP/TDAP/TD VACCINES (1 - Tdap) 1974 FIT-DNA Q 3 years 2000 FIT/FOBT Q 1 year 2000 Flex Sig/CT Colonography Q 5 years 2000 ZOSTER VACCINE (1 of 2) 2005 INFLUENZA VACCINE (#1) 2024 , 10/09/2019, 08/21/2018, Additional history exists [place] Preventative Visit/Annual Wellness Visit 11/03/2024 PNEUMOCOCCAL VACCINE 65+ YEA RS (3 of 3 - PCV20 or PCV21) 08/06/2026 08/06/2021, 11/30/2019 COLORECTAL SCREENING 08/25/2028 08/25/2018 Colorectal Cancer Screening 08/25/2028 RSV VACCINE (60+ or ) (1 - 1-dose 75+ series) 2030 Insurance AETNA PPO [facility]
--- OUTSIDE RECORDS SUMMARY | 2024-12-08 12:59 | XMS_ITS | Data Portability ---
Author Organization [place] - [facility] [employer], Main Office Address [address] [place] [address] Care Team Providers Care Manager Of Compliance Name Role Phone FATUMA CALDERA Primary Care Provider FATUMA CALDERA Referring Provider [phone] Assessment Encounter Date Assessment Date Assessment LastModified by Organization Details LastModified Time 05/09/2023 05/09/2023 I have reconciled the patient's medications post their discharge from inpatient facility. Not available 05/09/2023 15:27:33 Plan of Treatment Reminders Order Date Submit Date Provider Last Modified By Organization Details Last Modified Time Details Appointments None recorded. Lab testosteron e, free + total, serum 2022 023 [facility] (Lab), [address] [place], [address], 3 12:12:05 CBC 2022 023 [facility] (Lab), [address] [place], [address], 3 12:50:05 TSH, serum or plasma 2022 023 [facility] (Lab), [address] [place], [address], 3 14:41:47 vitamin B12 + folate, serum or blood 2022 023 [facility] (Lab), [address] [place], [address], 3 08:19:43 CMP, serum or plasma 2022 023 [facility] ([facility]), [address] [place], [address], 3 14:14:16 Referral cognitive behavioral therapy referral 2022 023 [email or web address] Not available 3 09:28:23 physical therapist referral - [facility] [employer] 2022 023 [email or web address] Not available 22:36:08 Procedures None recorded. Surgeries None recorded. Imaging XR, ankle, 3 or more view 2022 023 [email or web address] [facility] [place], [address], [place], [address], 3 22:36:08 XR, hand, 3 or more view 2022 023 [email or web address] [facility] [place], [address], [place], [address], 3 22:36:08 Medication Orders zolpidem 10 mg tablet 2022 023 [email or web address] [facility], [address] [place], [address], 3 16:00:49 duloxetine 30 mg capsule,del ayed release 2022 023 [email or web address], [address], [place], [address], 3 14:23:52 alprazolam 0.5 mg tablet 2022 023 YANY [facility], [address] , [place], [address], 3 16:29:35 buspirone 5 mg tablet 202204 023 YANY [facility], [address] [facility], [place], [address], 3 14:30:32 Patient TargetsNo targets recorded. Patient Instructions Encounter Date Encounter Id Patient Instructions Last Modified By Organization Details Last Modified Time 04/15/2023 [id number] Fu in 4-6 weeks for insomnia, anxiety, fatigue Not available 04/15/2023 11:37:12 06/06/2023 [id number] mo fu on buspar Not availab [...] 5.8 x10'3 /uL 4.2-10 .8 Not Available [facility] (Lab) [address] [place], [address], 04/16/2023 12:50:05 04/16/20 23 04/16/2023 CBC W/O DIFFE RENTI AL red blood cells 4.72 x10'6 /uL 4.10-5 .80 Not Available [facility] (Lab) [address] [place], [address], 04/16/2023 12:50:05 04/16/20 23 04/16/2023 CBC W/O DIFFE RENTI AL hemoglobin 15.0 g/dL 13.2-1 7.0 Not Available [facility] (Lab) [address] [place], [address], 04/16/2023 12:50:05 04/16/20 23 04/16/2023 CBC W/O DIFFE RENTI AL hematocrit 43.9 % 39.3-5 0.0 Not Available [facility] (Lab) [address] [place], [address], 04/16/2023 12:50:05 04/16/20 23 04/16/2023 CBC W/O DIFFE RENTI AL mean red cell volume 93.0 fL 80.0-9 7.0 Not Available [facility] (Lab) [address] [place], [address], 04/16/2023 12:50:05 04/16/20 23 04/16/2023 CBC W/O DIFFE RENTI AL mean red cell hemoglobin 31.8 pg 27.0-3 3.0 Not Available [facility] (Lab) [address] [place], [address], 04/16/2023 12:50:05 04/16/20 23 04/16/2023 CBC W/O DIFFE RENTI AL mean RBC HGB concentratio n 34.2 g/dL 31.0-3 6.0 Not Available [facility] (Lab) [address] [place], [address], 04/16/2023 12:50:05 04/16/20 23 04/16/2023 CBC W/O DIFFE RENTI AL red cell distribution width 11.9 % 11.8-1 5.5 Not Available [facility] (Lab) [address] [place], [address], 04/16/2023 12:50:05 04/16/20 23 04/16/2023 CBC W/O DIFFE RENTI AL platelets 305 x10'3 /uL 150-40 0 Not Available [facility] (Lab) [address] [place], [address], 04/16/2023 12:50:05 04/16/20 23 04/16/2023 CBC W/O DIFFE RENFARTUN AL mean platelet volume 10.5 fL 9.0-12 .4 Not Available [facility] (Lab) [address] [place], [address], 04/16/2023 12:50:05 04/16/20 23 04/16/2023 COMPR EHENS ANICETO METAB OLIC PANEL sodium 133 mmol/ L 137-14 5 low Not Available [facility] (Lab) [address] [place], [address], 04/16/2023 14:14:16 04/16/20 23 04/16/2023 COMPR EHENS ANICETO METAB OLIC PANEL potassium 4.4 mmol/ L 3.5-5. 1 Not Available [facility] (Lab) [address] [place], [address], 04/16/2023 14:14:16 04/16/20 23 04/16/2023 COMPR EHENS ANICETO METAB OLIC PANEL chloride 94 mmol/ L 98-107 low Not Available [facility] (Lab) [address] [place], [address], 04/16/2023 14:14:16 04/16/20 23 04/16/2023 COMPR EHENS ANICETO METAB OLIC PANEL carbon dioxide 30 mmol/ L 22-30 Not Available [facility] (Lab) [address] [place], [address], 04/16/2023 14:14:16 04/16/20 23 04/16/2023 COMPR EHENS ANICETO METAB OLIC PANEL anion gap 13.4 mmol/ L 14-22 low Not Available [facility] (Lab) [address] [place], [address], 04/16/2023 14:14:16 04/16/20 23 04/16/2023 COMPR EHENS ANICETO METAB OLIC PANEL glucose 85 mg/dL 70-99 Not Available [facility] (Lab) [address] [place], [address], 04/16/2023 14:14:16 04/16/20 23 04/16/2023 COMPR EHENS ANICETO METAB OLIC PANEL BUN 10 mg/dL 8-19 Not Available [facility] (Lab) [address] [facility] [place] [place], [address], 04/16/2023 14:14:16 04/16/20 23 04/16/2023 COMPR EHENS ANICETO METAB OLIC PANEL creatinine 0.94 mg/dL 0.66-1 .25 Not Available [facility] (Lab) [address] [facility] [place] [place], [address], 04/16/2023 14:14:16 04/16/20 23 04/16/2023 COMPR EHENS ANICETO METAB OLIC PANEL GFR >60 Refer ence Range : [place] ge GFR Healt hy Adult : >60 [...] s/kdo qi/gf r_cal culat or Not Available [facility] (Lab) [address] [place], [address], 04/16/2023 14:14:16 04/16/20 23 04/16/2023 COMPR EHENS ANICETO METAB OLIC PANEL alkaline phosphatase 61 U/L 38-126 Not Available [facility] (Lab) [address] [place], [address], 04/16/2023 14:14:16 04/16/20 23 04/16/2023 COMPR EHENS ANICETO METAB OLIC PANEL alanine aminotransfe rase 24 U/L 0-50 Not Available [facility] (Lab) [address] [place], [address], 04/16/2023 14:14:16 04/16/20 23 04/16/2023 COMPR EHENS ANICETO METAB OLIC PANEL aspartate aminotransfe rase 30 U/L 15-46 Not Available [facility] (Lab) [address] [place], [address], 04/16/2023 14:14:16 04/16/20 23 04/16/2023 COMPR EHENS ANICETO METAB OLIC PANEL bilirubin, total 0.60 mg/dL 0.20-1 .30 Not Available [facility] (Lab) [address] [place], [address], 04/16/2023 14:14:16 04/16/20 23 04/16/2023 COMPR EHENS ANICETO METAB OLIC PANEL calcium 9.0 mg/dL 8.4-10 .2 Not Available [facility] (Lab) [address] [place], [address], 04/16/2023 14:14:16 04/16/20 23 04/16/2023 COMPR EHENS ANICETO METAB OLIC PANEL total protein 6.7 g/dL 6.3-8. 2 Not Available [facility] (Lab) [address] [place], [address], 04/16/2023 14:14:16 04/16/20 23 04/16/2023 COMPR EHENS ANICETO METAB OLIC PANEL albumin 3.8 g/dL 3.0-4. 4 Not Available [facility] (Lab) [address] [place], [address], 04/16/2023 14:14:16 04/16/20 23 04/16/2023 COMPR EHENS ANICETO METAB OLIC PANEL globulin 2.9 g/dL 2.6-4. 2 Not Available [facility] (Lab) [address] [place], [address], 04/16/2023 14:14:16 04/16/20 23 04/16/2023 COMPR EHENS ANICETO METAB OLIC PANEL A/G ratio 1.3 ratio 1.0-2. 0 Not Available [facility] (Lab) [address] [place], [address], 04/16/2023 14:14:16 04/16/20 23 04/16/2023 TSH W/REF ROWDY FT4 TSH with reflex free T4 1.840 uIU/m L 0.465- 4.680 Not Available [facility] (Lab) [address] [place], [address], 04/16/2023 14:41:47 04/16/2004/16/2023 VITAM IN B12 (KARRI JOSHUA ) vb12 595 pg/mL 239-93 1 Not Available [facility] (Lab) [address] [place], [address], 04/16/2023 15:17:33 04/16/20 23 04/16/2023 FOLAT E, SERUM /PLAS MA folate >20.0 NG/mL 2.76-2 0.0 high Not Available [facility] (Lab) [address] [place], [address], 04/16/2023 15:17:36 04/16/2004/23/2023 TESTO STERO NE, FREE+ [...] . JCEM 2017, 102;1 161-1 173. PMID: 77063 103. Not Available [facility] (Lab) [address] [place], [address], 04/23/2023 12:12:05 04/16/20 23 04/23/2023 TESTO STERO NE, FREE+ TOTAL LC/MS testosterone , free 13.17 NG/dL 5.00-2 1.00 Not Available [facility] (Lab) [address] [place], [address], 04/23/2023 12:12:05 04/16/20 23 04/23/2023 TESTO STERO NE, FREE+ TOTAL LC/MS % free testosterone 3.43 % 1.50-4 .20 Perfo rmed at: [facility] Swati montiel [address] [facility] , [place] [address] Lab Direc tor: Nikki beach MD, Phone : [phone] Not Available [facility] (Lab) [address] [place], [address], 04/23/2023 12:12:05 01/09/20 23 DEXA, axial skele ton [facility] [address] [place] [address] [phone] Patien t Name: CELESTINO DODD Access ion #: [id number] Sex: M : 1955 2 Locati on: [...] e of 2.5. Page 1 of 2 [facility] Yoli Name: CELESTINO DODD Access ion #: [id number] Sex: M : 1955 2 Exam Date: [...] MD (CT) (CT) Page 2 of 2 [email or web address] [facility] (Imaging) [address] [place], [address], 01/14/2023 11:42:03 07/08/20 23 XR, hand, 3 or more view No observ ation record ed. [email or web address] [place] [address], [place], [address], 07/16/2023 09:11:46 07/08/20 XR, ankle , 3 or more view No observ ation record ed. [facility] [place] [address], [place], [address], 07/09/2023 09:06:27 Result Notes None recorded. Problems Name Problem SNOMED Code Status Onset Date Resolution Date Notes Provider Name and Address Organization Details Recorded Time Tenosynov itis of right radial styloid 77974226594 692752 Active 2021 Not Available [employer] 3 13:52:12 Tenosynov itis of left radial styloid 19120672579 626207 Active 2021 Not Available [employer] 3 13:52:12 Pain of left hand 38955124587 9103 Active 2021 Not Available [employer] 3 13:52:12 Pain of left wrist 36900836580 9102 Active 2021 Not Available [employer] 3 13:52:12 Periphera l vascular disease 133726249 Active 2018 Not Available [employer] 3 13:52:12 Anxiety 09139330 Active 2017 Not Available [facility] 3 13:52:12 Essential hypertens ion 26937068 Active 2017 Not Available [facility] 3 13:52:12 Varicose veins of lower extremity 43042937 Active 2018 Not Available [facility] 3 13:52:12 Psoriasis 6058911 Completed 201705/26/2018 Not Available [facility] 3 19:32:03 Allergic rhinitis 63109546 Active 2022 Not Available [facility] 3 13:52:12 Fatigue 13545641 Active 2022 Not Available [facility] 3 13:52:13 Insomnia 120295643 Active 2022 Not Available [facility] 3 13:52:12 Impacted cerumen in left ear 28243236470 38953 Active 2022 Not Available [facility] 3 13:52:12 Heartburn 03922994 Active 2022 Not Available [facility] 3 13:52:12 Major depressiv e disorder 012247602 Active 2022 Not Available [facility] 3 13:52:12 Panic attack 276392600 Active 2022 Not Available [facility] 3 13:52:12 Pain of left ankle joint 23687788507 555499 Active 2022 Not Available [facility] 3 13:52:12 Left Achilles tendiniti s 45919875704 9102 Active 2022 Not Available [facility] 3 13:52:12 Problem Notes None recorded. Procedures Surgical History Date Name Laterality Status Provider Name and Address Organization Details Recorded Time 05/09/20 Transitional_Ca re_Management completed Fatuma Felix RN [employer] 05/09/2023 15:27:33 04/15/20 Cerumen Removal completed Fatuma Caldera NP [address] [facility] [address], [place], [address], [facility] [employer] 04/15/2023 11:36:34 08/20/20 18 Colonoscopy completed Not Available [facility] 01/02/20 19:31:33 Sinus Surgery completed Not Available [facility] 01/01/2023 19:31:33 Imaging Results Imaging Date Name Status LastModified by Organiz ation Details LastModified Time 01/08/2023 DEXA, axial skeleton completed [email or web address] [facility] (Imaging) [address] [place], [address], 01/14/2023 11:42:03 07/08/2023 XR, hand, 3 or more view completed [facility] [place] [address], [place], [address], 07/16/2023 09:11:46 07/08/2023 XR, ankle, 3 or more view completed [facility] [place] [address] [facility] [address], [place], [address], 07/09/2023 09:06:27 Procedure Notes None recorded. Medical [...] % 91 /min 16 /min 97.9 [degF] 34405.1 9 g 128 mm[Hg] 84 mm[Hg] Not Available [employer] 3 19:31:36 Date Recorded Body height Body mass index (BMI) Body weight Body temperature Heart rate Oxygen saturation Oxygen saturation in Arterial blood by Pulse oximetry Respiratory rate Systolic blood pressure Diastolic blood pressure Provider Name and Address Organization Details Last Updated DateTime 3 180.34 cm 28.9 kg/m2 21979.6 2 g 98 [degF] 88 /min 99 % 99 % 16 /min 136 mm[Hg] 82 mm[Hg] Nora Reeves RN [facility] [employer] [facility] 3 10:57:39 Date Recorded Body height Body mass index (BMI) Body weight Body temperature Heart rate Oxygen saturation Oxygen saturation in Arterial blood by Pulse oximetry Systolic blood pressure Diastolic blood pressure Provider Name and Address Organization Details Last Updated DateTime 3 180.34 cm 27.5 kg/m2 52603.1 5 g 97.2 [degF] 97 /min 100 % 100 % 142 mm[Hg] 100 mm[Hg] Fatuma Felix RN [facility] [employer] [facility] 3 15:29:37 Date Recorded Body height Body mass index (BMI) Body weight Body temperature Heart rate Respiratory rate Oxygen saturation Oxygen saturation in Arterial blood by Pulse oximetry Pain severity - 0-10 verbal numeric rating [Score] - Reported Systolic blood pressure Diastolic blood pressure Provider Name and Address Organization Details Last Updated DateTime 3 180.34 cm 27.8 kg/m2 83980.2 8 g 97.1 [degF] 90 /min 20 /min 98 % 98 % 0 138 mm[Hg] 82 mm[Hg] Fatuma Felix RN [facility] [employer] [facility] 3 14:10:33 Date Recorded Body height Body mass index (BMI) Body weight Provider Name and Address Organization Details Last Updated DateTime 07/08/2023 180.34 cm 27.9 kg/m2 88901.47 g CAROLINA Magana [place] [employer] [facility] [employer] [facility] 07/08/2023 10:43:11 Social History Question Answer Notes LastModified by Organization Details LastModified Time Tobacco Smoking Status Never Smoker Not Available [facility] 01/01/2023 19:31:25 Do You Have An Advance Directive? No MIGRATION.0301 [id number] Information not available 01/01/2023 What Is Your Level Of Alcohol Consumption? Occasional MIGRATION.0301 978573 Information not available 01/01/2023 Do You Wear A Helmet When Biking? Yes MIGRATION.0301 116564 Information not available 01/01/2023 Are You Blind Or Do You Have Difficulty Seeing? No Macular Degenerati on, Eye Exam Q 6 Months MIGRATION.0301 938500 Information not available 01/01/2023 Is Blood Transfusion Acceptable In An Emergency? Yes Information not available 05/09/2023 What Is Your Level Of Caffeine Consumption? Moderate MIGRATION.0301 173346 Information not available 01/01/2023 What Is Your Code Status? Full Code MIGRATION.0301 [id number] Information not available 01/01/2023 In The 14 Days Before Symptom Onset, Have You Had Close Contact With A Laboratory-confi rmed COVID-19 While That Case Was Ill? No MIGRATION.0301 459350 Information not available 01/01/2023 In The 14 Days Before Symptom Onset, Have You Had Close Contact With A Person Who Is Under Investigation For COVID-19 While That Person Was Ill? No MIGRATION.0301 980318 Information not available 01/01/2023 Are You Currently Employed? No Retired Information not available 06/06/2023 Are You Deaf Or Do You Have Serious Difficulty Hearing? No MIGRATION.0301 987231 Information not available 01/01/2023 What Type Of Diet Are You Following? REGULAR MIGRATION.0301 853289 Information not available 01/01/2023 Have There Been Any Changes To Your Family Or Social Situation? No MIGRATION.0301 229025 Information not available 01/01/2023 Are There Any Guns Present In Your Home? No MIGRATION.0301 782716 Information not available 01/01/2023 Do You Use Insect Repellent Routinely? Yes MIGRATION.0301 778993 Information not available 01/01/2023 Where Do You Live? SingleLevelHouse MIGRATION.0301 225184 Information not available 01/01/2023 Do You Have A Medical Power Of Cable Television Program Director? No MIGRATION.0301 556535 Information not available 01/01/2023 What Was The Date Of Your Most Recent Tobacco Screening? 08/06/2021 MIGRATION.0301 724474 Information not available 01/01/2023 Have You Ever Been Counseled For Unhealthy Alcohol Use? No MIGRATION.0301 733466 Information not available 01/01/2023 Do You Have Any Pets? No MIGRATION.0301 539728 Information not available 01/01/2023 What Is Your Relationship Status? MIGRATION.0301 124939 Information not available 01/01/2023 Do You Use Your Seat Belt Or Car Seat Routinely? Yes MIGRATION.0301 435192 Information not available 01/01/2023 Do You Have Smoke And Carbon Monoxide Detectors In Your Home? Yes MIGRATION.0301 904804 Information not available 01/01/2023 Are You Passively Exposed To Smoke? No MIGRATION.0301 168646 Information not available 01/01/2023 Are There Any Smokers In Your House? No MIGRATION.0301 725946 Information not available 01/01/2023 Do You Participate In Social [employer]? Yes MIGRATION.0301 586137 Information not available 01/01/2023 Do You Feel Stressed (tense, Restless, Nervous, Or Anxious, Or Unable To Sleep At Night)? KD05031-0 MIGRATION.0301 066885 Information not available 01/01/2023 Do You Use Any Illicit Or Recreational Drugs? No MIGRATION.0301 912377 Information not available 01/01/2023 Do You Use Sunscreen Routinely? Yes MIGRATION.0301 407930 Information not available 01/01/2023 Has Tobacco Cessation Counseling Been Provided? No MIGRATION.0301 577642 Information not available 01/01/2023 Have You Recently Traveled Abroad? No MIGRATION.0301 609738 Information not available 01/01/2023 Are You Currently In School? No MIGRATION.0301 810919 Information not available 01/01/2023 Do You Have Any Dietary Restrictions? No MIGRATION.0301 649619 Information not available 01/01/2023 Do You Or Have You Ever Used Any Other Forms Of Tobacco Or Nicotine? No MIGRATION.0301 468196 Information not available 01/01/2023 Sex: Male Functional Status Question Answer Note LastModified by Organizat ion Details LastModified Time Do you have difficulty walking or climbing stairs? No MIGRATION.9254920 026 Information not available 01/01/2023 Do you have transportation difficulties? No MIGRATION.6068566 026 Information not available 01/01/2023 Are you able to walk? YESWOREST MIGRATION.9923609 026 Information not available 01/01/2023 Do you have difficulty doing errands alone? No MIGRATION.4936592 026 Information not available 01/01/2023 Are you able to care for yourself? Yes MIGRATION.1123933 026 Information not available 01/01/2023 Do you have difficulty dressing or bathing? No MIGRATION.9203607 026 Information not available 01/01/2023 What is your exercise level? Occasional Information not available 06/06/2023 Mental Status Question Answer Note LastModified by Organizat ion Details LastModified Time Do you have difficulty concentrating, remembering or making decisions? No MIGRATION.224969154 6 Information not available 01/01/2023 Family History Relationship Description Onset Age of this Age Resolved Age Notes LastModified by Organization Details LastModified Time Father Family history of malignant neoplasm MIGRATION.114 [id number] Not available 01/01/2023 19:31:33 Maternal Grandmother Hypertensive disorder MIGRATION.330 [id number] Not available 01/01/2023 19:31:33 Maternal Grandmother Myocardial infarction MIGRATION.128 1088163 Not available 01/01/2023 19:31:33 Maternal Uncle Hypertensive disorder MIGRATION.252 6638985 Not available 01/01/2023 19:31:33 Maternal Uncle Myocardial infarction MIGRATION.375 1579579 Not available 01/01/2023 19:31:33 Maternal Grandfather Myocardial infarction MIGRATION.686 6730560 Not available 01/01/2023 19:31:33 Brother Glaucoma MIGRATION.457 9325064 Not available 01/01/2023 19:31:33 Father Family history of stroke [email or web address] Not available 03/2023 10:44:38 Medical History Condition Response SKIN PROBLEMS Y HEADACHES/MIGRAINES Y ANXIETY DISORDER Y USE OF BLOOD THINNERS Y SLEEP DISORDER Y HYPERTENSION Y Immunizations Vaccine Type Date Status Note Provider Nam e and Address Organization Details Recorded Time influenza, unspecified formulation 2 completed Not Available [facility] 01/01/2023 19:32:44 COVID-19, mRNA, LNP-S, PF, 100 mcg/0.5mL dose or 50 mcg/0.25mL dose 1 completed Not Available [facility] 01/01/2023 19:32:45 COVID-19, mRNA, LNP-S, PF, 100 mcg/0.5mL dose or 50 mcg/0.25mL dose 1 completed Not Available [facility] 01/01/2023 19:32:45 Influenza, split virus, quadrivalent, preservative 9 completed Not Available [facility] 01/01/2023 19:32:45 Influenza, split virus, quadrivalent, preservative 7 completed Not Available [facility] 01/01/2023 19:32:45 Pneumococcal conjugate PCV 13 1 completed Not Available [facility] 01/01/2023 19:32:45 Influenza, high-dose, quadrivalent, PF 1 completed Not Available [facility] 01/01/2023 19:32:46 pneumococcal polysaccharide PPV23 0 completed Not Available [facility] 01/01/2023 19:32:46 Influenza, split virus, quadrivalent, PF 8 completed Not Available [facility] 01/01/2023 19:32:46 influenza, unspecified formulation 3 completed Fatuma Caldera, LYNETTE [address] [facility] [facility] [address], [place], [address], [facility] [employer] 09/01/2023 22:59:07 Past Encounters Encounter ID Performer Location Encounter Start Date Encounter Closed Date Diagnosis/Indication Diagnosis SNOMED-CT Code Diagnosis ICD10 Code Diagnosis Note [id number] [facility] [place] [address] [facility] , [place] [address] 08/06/2021 00:00:00 08/06/2021 11:10:46 [id number] [facility] [place] [address] [place] [address] 07/09/2022 00:00:00 07/09/2022 12:14:11 [id number] [facility] [place] [address] [place] [address] 08/07/2022 00:00:00 08/07/2022 16:25:[id number] [address] 10/15/2022 00:00:00 10/15/2022 12:22:[id number] [address] 12/11/2022 00:00:00 12/11/2022 11:15:10 [id number] Fatuma Caldera NP [address] [address] 04/15/2023 10:36:44 04/15/2023 11:49:56 Anxiety 25894366 F41.9 will try to help get better sleep. Essential hypertension 71571011 I10 Lisinopril 5 mg po dailyASA 81 mg po daily<2 gm sodium diet. Allergic rhinitis 011581 04 J30.9 zyrtec 10 mg po daily, prn symptoms.N asocort. Fatigue 80204139 R53.83 Labs ordered. Work on sleep hygeine. Consider sleep study. Insomnia [id number] G47.0 0 zolpidem 10 mg po nightly. Can try at 5 mg po nightly to start. Impacted c erumen in left ear [id number] 521344 H61.22 irrigated 04/15/23 [id number] Fatuma Caldera NP [address] [address] 05/09/2023 15:21:12 05/09/2023 16:29:10 Heartburn 76525085 R12 Nexium 20 mg otc. Diet mods Major depr essive disorder [id number] F32.9 Duloxetine 30 mg po daily. FU in 4-6 weeks.Nadja ent voices he doesn't want to go down the path of seeing therapy and psych. Panic attack 327521130 F 41.0 Alprazolam prn. [facility]en in [facility] [id number] Z76.89 [id number] Fatuma Caldera NP [address] [address] 06/06/2023 14:00:24 06/06/2023 14:43:05 Panic attack 366391017 F41.0 Hydroxyzin e prn. Anxiety 46827722 F41.9 Buspar 5 mg po daily for 1 week, then bid. [id number] JESSIE Shelton [facility] Juliana Espino[place] [address] [place] [address] 07/08/2023 10:23:56 07/08/2023 11:29:26 Pain of left hand [id number] 11973 M79.642 Pain of le ft ankle joint 8948711619 9997877 M25.572 Left Achil les tendinitis 2354405520 04426 M76.62 Patient has developed atraumatic calcific achilles [...] worsen. Tenosynovi tis of left radial styloid [id number] 9122378 M65.4 patient has had recurrence of his [...] Almanzar Member ID Guarantor Name 04/15/2023 1 DEMAR (MEDICARE REPLACEMENT PPO) [id number] 1 Nam Sawyer [id number] Nam Sawyer 05/09/2023 1 AETNA (MEDICARE REPLACEMENT PPO) [id number] 1 Nam Sawyer [id number] Nam Davisneserg 06/06/2023 1 AETNA (MEDICARE REPLACEMENT PPO) [id number] 1 Nam Davisnek [id number] Nam Davisneserg 07/08/2023 1 AETNA (MEDICARE REPLACEMENT PPO) [id number] 1 Nam Sawyer [id number] Nam Sawyer Notes Date Note Type Note Provider Name [...] sleep in lab. Fatuma Caldera, LYNETTE [address] [facility], [facility] [address], [place], [address], [place] [facility] [employer] 04/15/2023 11:37:44 05/09/2023 text/html Here with f or ER follow up x 2 and anxiety States he went to [facility] ER on 04/29/23 and 05/04/23Was having anxiety [...] to calm him down. Brother drove from [facility]. Brother was there a big part of [...] worse than then. Fatuma Caldera NP [address], [address], [place], [address], [employer] 05/09/2023 16:40:56 06/06/2023 text/html Here for check [...] at home today. Fatuma Caldera NP [address], [address], [place], [address], [employer] 06/06/2023 14:39:41 07/08/2023 text/html 67-year-old male returns [...] to his left ankle. JESSIE Shelton [address] [facility], [facility], [place], [address], [facility] 07/16/2023 09:11:51
--- OUTSIDE RECORDS SUMMARY | 2024-12-08 12:59 | XMS_ITS | Referral Summary ---
Author Organization [place] [address] [place] Address [address] [place] [address] Care Team Providers Care Motorcycle Police Officer Name Role Phone Maribel Castillo NP Primary Care Provider [phone] Allergies No known active allergies Medications lisinopril [...] (05/26/2018): Added automatically from request for surgery [id number] Immunizations Name Administration Dates Next Due Influenza, [...] on file Legal Sex Male 7:57 PM LAST SAWYER Gender Identity Not on file Sexual Orientation [...] Chambers MD - 05/12/2024 8:35 AM CDT [facility] Patient Name: Nam Sawyer Procedure Date: 05/12/2024 8:35 AM Date of : 1955 Admit Type: Outpatient Age: 68 Gender: Male Attending MD: Elsa Chambers M.D. Room: [facility] ENDOSCOPY ROOM 1 Note Status: Finalized [...] under direct vision. The Pediatric Colonoscope PCF-H190L [id number] was introducedthrough the anus and advanced to [...] organs K64.8, Other hemorrhoids CPT copyright 2020 [place] [employer]. All rights reserved. The codes documented in this report are preliminary and upon hat block maker reviewmay be revised to meet current compliance requirements. Recognized by the [place] Society for Gastrointestinal Endoscopy for promoting quality [...] compared to the equimolar-standardized total PSA (Alka [place]). Comparison of serial PSA results should be [...] Performing Organization Information: ?Site ID: PAT ?Name: [facility] ?Address: [address] [place] [address] ?Director: Juan Ramon Verdugo D.O., MPH Adrian Arboleda LAB BLOOD ORDERABLES Final Resul t KAYLEIGH ALMANZAR - PAT PAT Mata from Last 3 Months or Most Recently Relevant to Health Maintenance Insurance [employer] [facility] MEDICARE Advance Directives For more information, please contact: [phone] * Full Code (Latest Code Status on File) Date Activated Date Inactivated Comments 05/12/2024 8:56 AM 05/12/2024 2:35 PM * Full Code Date Activated Date Inactivated Comments 05/12/2024 8:56 AM 05/12/2024 8:56 AM * Full Code Date Activated Date Inactivated Comments 08/25/2018 8:46 AM 08/25/2018 12:52 PM * Full Code Date Activated Date Inactivated Comments 08/25/2018 8:46 AM 08/25/2018 8:46 AM Care Teams Motorcycle Police Officer Relationship Specialty Start Date End Date Maribel Castillo NP PCP - General Nurse Practitioner 05/26/18
--- OUTSIDE RECORDS SUMMARY | 2024-12-08 12:59 | XMS_ITS | Clinical Summary ---
Author Organization [facility] Address [facility] [place] [address] Care Team Providers Care Cvicu Nurse Name Role Phone Fatuma Portillo [facility] Primary Care Provider + Allergies No [...] complete this topic Insurance AETNA Care Teams Cvicu Nurse Relationship Specialty Start Date End Date Fatuma Portillo, LUNCH TRUCK OPERATOR- [address] [place] [address] PCP - General NURSE PRACTITIONER 04/29/23
--- OUTSIDE RECORDS SUMMARY | 2024-12-08 12:59 | XMS_ITS | Clinical Summary ---
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 Room: [facility] ENDOSCOPY ROOM 1 Note Status: Finalized Patient [...] under direct vision. The Pediatric Colonoscope PCF-H190L [id number] was introducedthrough the anus and advanced to [...] organs K64.8, Other hemorrhoids CPT copyright 2020 [place] [employer]. All rights reserved. The codes documented in this report are preliminary and upon trolley car overhauler reviewmay be revised to meet current compliance requirements. Recognized by the [place] [employer] for Gastrointestinal Endoscopy for promoting quality [...] compared to the equimolar-standardized total PSA (Alka [place]). Comparison of serial PSA results should be [...] Performing Organization Information: ?Site ID: PAT ?Name: [facility] [place] ?Address: [address] [address] ?Director: Juan Ramon Verdugo D.O., MPH Adrian Arboleda LAB BLOOD ORDERABLES Final Resul t PAT Black from Last 3 Months or Most Recently Relevant to Health Maintenance Insurance [employer] [facility] AETNA MEDICARE Advance Directives For more information, please contact: [phone] * Full Code (Latest Code Status on File) Date Activated Date Inactivated Comments 05/12/2024 8:56 AM 05/12/2024 2:35 PM * Full Code Date Activated Date Inactivated Comments 05/12/2024 8:56 AM 05/12/2024 8:56 AM * Full Code Date Activated Date Inactivated Comments 08/25/2018 8:46 AM 08/25/2018 12:52 PM * Full Code Date Activated Date Inactivated Comments 08/25/2018 8:46 AM 08/25/2018 8:46 AM Care Teams Design Chief Relationship Specialty Start Date End Date Maribel Castillo NP PCP - General Nurse Practitioner 05/26/18
== END 2024-12-08 11:24 | disposition home or self-care (01) ==
LOC: ANHLAB 11:23
PROVIDERS: PCP Nurse Practitioner Adult Health; Visit Provider Internal Medicine Hematology & Oncology
DX: D72.829 Elevated white blood cell count, unspecified (principal)
CPT/HCPCS: 36415; 80048; 85025

== ENCOUNTER 2025-06-22 06:47 | Outpatient (CLI) | payer MEDICARE, SELFPAY ==
--- OUTSIDE RECORDS SUMMARY | 2025-06-22 06:50 | XMS_ITS | Clinical Summary ---
Author Organization [facility] Sarah [place] Address [address] [place] [address] Care Team Providers Care Manager Biologics Name Role Phone Unavailable Primary Care Provider Unavailabl e Allergies No known active allergies Medications aspirin (ECOTRIN EC) 81 mg Tablet, Delayed Release (E.C.) Take 81 mg by mouth. Active lisinopriL (PRINIVIL) 5 mg tablet Take 5 mg by mouth daily. Active buPROPion HCL (WELLBUTRIN XL) 300 mg Extended Release 24 hour tablet Take 150 mg by mouth daily in the morning. Every other morning Active triamcinolone acetonide (NASACORT AQ) 55 mcg nasal spray Administer 1 [place] in each nostril daily. Active cetirizine (ZyrTEC) 10 mg tablet Take 10 mg by mouth daily. Active multivitamin (DAILY-HEVER) tablet Take 1 Tablet by mouth daily. Centrum silver Active calcium as carbonate (CALTRATE) 1,500 mg (600 mg elemental) Tablet Take by mouth. Activ e esomeprazole (NexIUM) 20 mg Capsule, Delayed Release(E.C.) Take 20 mg by mouth daily before breakfast. Active Active Problems No known active problems [...] Sign Reading Time Taken Comments Blood Pressure 126/83 12/14/2024 1:12 PM BROADCAST SUPERVISOR Pulse 87 12/14/2024 1:12 PM BROADCAST SUPERVISOR Temperature 36.6 C (97.8 F) 12/14/2024 1:12 PM BROADCAST SUPERVISOR Respiratory Rate 16 12/14/2024 1:12 PM BROADCAST SUPERVISOR Oxygen Saturation 97% 12/14/2024 1:12 PM BROADCAST SUPERVISOR Inhaled Oxygen Concentration - - Weight 92.5 kg (204 lb) 12/14/2024 1:12 PM BROADCAST SUPERVISOR Height 180.3 cm (5' 11) 10/06/2023 2:48 PM BROADCAST SUPERVISOR Body Mass Index 28.45 10/06/2023 2:48 PM BROADCAST SUPERVISOR Plan of Treatment Upcoming Encounters Date Type Department Care Team (Late st Contact Info) Description 12/14/2025 1:15 PM BROADCAST SUPERVISOR Office Visit [facility] Oncology and Hematology [facility] [address] [facility] [address] [place] [address] Larry Villanueva MD [address] [facility] [address] [place] [address] Health Maintenance Due Date Last Done Comments Pre-Diabetes and Diabetes Screening 1955 DTAP/TDAP/TD VACCINES (1 - Tdap) 1974 FIT-DNA Q 3 years 2000 FIT/FOBT Q 1 year 2000 Flex Sig/CT Colonography Q 5 years 2000 ZOSTER VACCINE (1 of 2) 2005 INFLUENZA VACCINE (#1) 2025 , 10/09/2019, 08/21/2018, Additional history exists PNEUMOCOCCAL VACCINE 50+ YEA RS (3 of 3 - PCV20 or PCV21) 08/06/2026 08/06/2021, 11/30/2019 RSV VACCINE (60+ or ) (1 - 1-dose 75+ series) 2030 COLORECTAL SCREENING 05/12/2034 05/12/2024, 05/12/2024, 08/25/2018 Colorectal Cancer Screening 05/12/2034 Insurance AETNA PPO MCR
--- OUTSIDE RECORDS SUMMARY | 2025-06-22 06:51 | XMS_ITS | Clinical Summary ---
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 Gender Identity Not on file Sexual Orientation Not on file Obstetrics History Last Filed Vital Signs Vital Sign Reading Time Taken Comments Blood Pressure 126/79 05/12/2024 10:23 AM CDT Pulse 75 05/12/2024 10:23 AM CDT Temperature 36.7 C (98 F) 05/12/2024 10:23 AM CDT Respiratory Rate 16 05/12/2024 10:23 AM CDT Oxygen Saturation 100% 05/12/2024 10:23 AM CDT Inhaled Oxygen Concentration - - Weight 93 kg (205 lb) 08/25/2018 8:55 AM CDT Height 180.3 cm (5' 11) 08/25/2018 8:55 AM CDT Body Mass Index 28.59 08/25/2018 8:55 AM CDT Plan of Treatment Health Maintenance Due Date Last Done Comments Fall Risk Assessment 1955 Hepatitis C Screening 1955 Hepatitis B Screening 1973 Zoster Vaccine (1 of 2) 2005 Depression Screening 07/21/2018 07/21/2017, 07/14/20 Prostate Cancer Screening-PSA 07/16/2019 07/16/2017 Abdominal Aortic Aneurysm (A AA) Screen 2020 Well Visit 65+ 2020 Covid-19 Vaccine (4 - 2023-2 5 season) 2024 02/14/2021, 02/07/2021, 01/17/2021, Additional history exists Influenza Vaccine (#1) 2025 , 08/30/2022, 08/03/2022, Additional history exists Pneumococcal vaccine 65+ (3 of 3 - PCV20 or PCV21) 08/06/2026 08/06/2021, 11/30/2019 DTaP/Tdap/Td Vaccine (2 - [...] MD - 05/12/2024 8:35 AM CDT [facility] Patient Name: Nam Sawyer Procedure Date: 05/12/2024 8:35 AM Date of : 1955 Admit Type: Outpatient Age: 68 Gender: Male Attending MD: Elsa Chambers M.D. Room: [facility] ENDOSCOPY ROOM 1 Note Status: Finalized Patient [...] under direct vision. The Pediatric Colonoscope PCF-H190L [id number] was introducedthrough the anus and advanced to [...] organs K64.8, Other hemorrhoids CPT copyright 2020 [employer] [place] [employer]. All rights reserved. The codes documented in this report are preliminary and upon high school learning support teacher reviewmay be revised to meet current compliance requirements. Recognized by the [place] Society for Gastrointestinal Endoscopy for promoting quality in endoscopy Elsa Chambers MD ENDOSCOPY PROCEDURES Final Result * PSA screen (07/16/2017 7:43 AM CDT) PSA 0.6 < OR = 4.0 ng/mL KAYLEIGH ALMANZAR - PAT Comment: The total PSA value from this assay system is standardized against the WHO standard. The test result will be approximately 20% lower when compared to the equimolar-standardized total PSA (Alka [place]). Comparison of serial PSA results should be [...] FASTING:YES Resulting Agency Comment Performing Organization Information: Site ID: PAT Name: Kayleigh Coughlin Address: [address] [address] Director: Juan Ramon Verdugo D.O., MPH Adrian Arboleda LAB BLOOD ORDERABLES Final Resul t KAYLEIGH Littlejohnjevon PAT from Last 3 Months or Most Recently Relevant to Health Maintenance Insurance [employer] [facility] AETNA MEDICARE Advance Directives For more information, please contact: [phone] * Full Code (Latest Code Status on [...] AM 08/25/2018 8:46 AM Care Teams Electronic Tester Relationship Specialty Start Date End Date Maribel Castillo NP PCP - General Nurse Practitioner 05/26/18
--- OUTSIDE RECORDS SUMMARY | 2025-06-22 06:51 | XMS_ITS | Clinical Summary ---
Author Organization [facility] Address [facility] [place] [address] Care Team Providers Care Employment Evaluator/Case Manager Name Role Phone Fatuma Portillo [facility] Primary Care Provider + Allergies No known [...] 89 05/04/2023 6:07 PM CDT Temperature 36.5 C (97.7 F) 05/04/2023 6:07 PM CDT Respiratory Rate 16 05/04/2023 6:07 PM CDT Oxygen Saturation 99% 05/04/2023 6:07 PM CDT Inhaled Oxygen Concentration - - Weight 90 kg (198 lb 6.6 oz) 05/04/2023 4:50 PM CDT Height 177.8 cm (5' 10) 05/04/2023 4:50 PM CDT Body Mass Index 28.47 05/04/2023 4:50 PM CDT Plan of Treatment Health Maintenance Due Date Last Done Comments Colorectal Cancer Screening Colonoscopy (10 Years) 1955 Hepatitis C 1973 Zoster Vaccines (1 of 2) 2005 Annual Medicare Wellness Visit 2020 COVID-19 Vaccine ( season) 2024 02/14/2021, 02/07/2021, 01/17/2021, Additional history exists Pneumococcal Vaccine: 50+ Years (3 of 3 - PCV20 or PCV21) 08/06/2026 08/06/2021, 11/30/2019 DTaP, Tdap and Td [...] complete this topic Insurance AETNA Care Teams Employment Evaluator/Case Manager Relationship Specialty Start Date End Date Fatuma Portillo, GYN-BC [address] [facility] [place] [address] PCP - General NURSE PRACTITIONER 04/29/23
[2025-06-22 19:17] LABS: Alanine Aminotransferase 27 U/L (6-50); Albumin Level 4.2 g/dL (3.5-5.1); Alkaline Phosphatase 62 U/L (38-126); Anion Gap 5 mmol/L (4-12); Aspartate Amino Transferase 73 U/L (17-59); Bilirubin,Total 0.3 mg/dL (0.2-1.3); Blood Urea Nitrogen 10 mg/dL (9-20); Calcium 9.2 mg/dL (8.4-10.2); Carbon Dioxide 31 mmol/L (22-30); Chloride 99 mmol/L (98-107); Cholesterol 163 mg/dL (0-200); Estimated Glomerular Filt Rate > 60; Glucose 84 mg/dL (65-110); HDL Direct 36 mg/dL; Potassium 5.0 mmol/L (3.4-5.0); Sodium 135 mmol/L (137-145); Total Protein 7.1 g/dL (6.3-8.2); Triglycerides 125 mg/dL (<150)
[2025-06-22 19:47] LABS: Prostate Specific Antigen 1.5 ng/mL (< OR = 4.0)
[2025-06-22 20:06] LABS: Vitamin B12 522.0 pg/mL (239-931)
== END 2025-06-22 06:48 | disposition home or self-care (01) ==
PROVIDERS: PCP Nurse Practitioner Adult Health; Visit Provider Nurse Practitioner Adult Health
DX: E78.5 Hyperlipidemia, unspecified (principal); Z12.5 Encounter for screening for malignant neoplasm of prostate; Z51.81 Encounter for therapeutic drug level monitoring; Z79.899 Other long term (current) drug therapy
CPT/HCPCS: 36415; 80053; 80061; 82607; 84153; G0103

== ENCOUNTER 2025-08-17 07:21 | Outpatient (CLI) | payer MEDICARE, SELFPAY ==
--- OUTSIDE RECORDS SUMMARY | 2025-08-17 07:24 | XMS_ITS | Clinical Summary ---
Author Organization [facility] Sarah [place] Address [address] [place] [address] Care Team Providers Care Wastewater Manager Name Role Phone Unavailable Primary Care Provider [...] AQ) 55 mcg nasal spray Administer 1 [place] in each nostril daily. Active cetirizine (ZyrTEC) [...] Active Active Problems No known active problems Encounters Date Type Department Care Team Description 07/12/2025 External Device Data STL ABSTRACTION Provider, Abstract from Last 3 Months Family History Medical History Relation Name Comments [...] Comments Blood Pressure 126/83 12/14/2024 1:12 PM SECRETARY OF STATE Pulse 87 12/14/2024 1:12 PM SECRETARY OF STATE Temperature 36.6 C (97.8 F) 12/14/2024 1:12 PM SECRETARY OF STATE Respiratory Rate 16 12/14/2024 1:12 PM SECRETARY OF STATE Oxygen Saturation 97% 12/14/2024 1:12 PM SECRETARY OF STATE Inhaled Oxygen Concentration - - Weight 92.5 kg (204 lb) 12/14/2024 1:12 PM SECRETARY OF STATE Height 180.3 cm (5' 11) 10/06/2023 2:48 PM SECRETARY OF STATE Body Mass Index 28.45 10/06/2023 2:48 PM SECRETARY OF STATE Plan of Treatment Upcoming Encounters Date Type Department Care Team (Late st Contact Info) Description 12/14/2025 1:15 PM SECRETARY OF STATE Office Visit [facility] Oncology and Hematology [place] [address] [place] [address] [address] [place] [address] Larry Villanueva MD [address] [facility] [address] [place] [address] Health Maintenance Due Date Last [...] Colorectal Cancer Screening 05/12/2034 Insurance AETNA PPO [facility]
--- OUTSIDE RECORDS SUMMARY | 2025-08-17 07:24 | XMS_ITS | Clinical Summary ---
Author Organization [place] [address] [place] Address [address] [place] [address] Care Team Providers Care Flight Inspector Name Role Phone Maribel Castillo NP Primary Care Provider [phone] Allergies No known active allergies Medications lisinopril [...] (05/26/2018): Added automatically from request for surgery [id number] Immunizations Immunization Administration Dates Next Due Influenza, [...] on file Legal Sex Male 7:57 PM HEALTH INFORMATION MANAGEMENT DIRECTOR Gender Identity Not on file Sexual Orientation [...] Visit 65+ 2020 Covid-19 Vaccine (4 - 2024-2 6 season) 2025 02/14/2021, 02/07/2021, 01/17/2021, Additional history exists Influenza [...] MD - 05/12/2024 8:35 AM CDT Digestive [facility] Patient Name: Nam Sawyer Procedure Date: 05/12/2024 8:35 AM Date of : 1955 Admit Type: Outpatient Age: 68 Gender: Male Attending MD: Elsa Chambers M.D. Room: [facility] ENDOSCOPY ROOM 1 Note Status: Finalized Patient [...] under direct vision. The Pediatric Colonoscope PCF-H190L [id number] was introducedthrough the anus and advanced to [...] organs K64.8, Other hemorrhoids CPT copyright 2020 [place] [employer]. All rights reserved. The codes documented in this report are preliminary and upon commissary worker reviewmay be revised to meet current compliance requirements. Recognized by the [place] [employer] for Gastrointestinal Endoscopy for promoting quality [...] compared to the equimolar-standardized total PSA (Alka [place]). Comparison of serial PSA results should be [...] Site ID: PAT Name: Kayleigh Coughlin Address: [address] [address] Director: Juan Ramon Verdugo D.O., MPH Adrian Arboleda LAB BLOOD ORDERABLES Final Resul t KAYLEIGH Littlejohnjevon PAT from Last 3 Months or Most Recently Relevant to Health Maintenance Insurance [employer] AETNA MEDICARE Advance Directives For more information, please contact: [phone] * Full Code (Latest Code Status on File) Date Activated Date Inactivated Comments 05/12/2024 8:56 AM 05/12/2024 2:35 PM * Full Code Date Activated Date Inactivated Comments 05/12/2024 8:56 AM 05/12/2024 8:56 AM * Full Code Date Activated Date Inactivated Comments 08/25/2018 8:46 AM 08/25/2018 12:52 PM * Full Code Date Activated Date Inactivated Comments 08/25/2018 8:46 AM 08/25/2018 8:46 AM Care Teams Flight Inspector Relationship Specialty Start Date End Date Maribel Castillo NP PCP - General Nurse Practitioner 05/26/18
[2025-08-17 18:53] LABS: Alanine Aminotransferase 27 U/L (6-50); Albumin Level 3.9 g/dL (3.5-5.1); Alkaline Phosphatase 78 U/L (38-126); Aspartate Amino Transferase 101 U/L (17-59); Bilirubin,Total 0.4 mg/dL (0.2-1.3); Total Protein 6.8 g/dL (6.3-8.2)
== END 2025-08-17 07:22 | disposition home or self-care (01) ==
PROVIDERS: PCP Nurse Practitioner Adult Health; Visit Provider Nurse Practitioner Adult Health
DX: R74.8 Abnormal levels of other serum enzymes (principal)
CPT/HCPCS: 36415; 80076

== ENCOUNTER 2025-08-29 08:06 | Outpatient (CLI) | payer MEDICARE, SELFPAY ==
--- NOTE | ~2025-08-29 | US_ITS ---
ULTRASOUND ABDOMEN LIMITED (RIGHT UPPER QUADRANT) Clinical History: Abnormal levels of other serum enzymes Comparison: CT abdomen and pelvis 08/21/2023 Technique: Right upper quadrant sonography Findings: Liver: Enlarged. Echogenic. No intrahepatic biliary ductal dilatation. Multiple cysts, largest 6 cm. Normal hepatopedal flow main portal vein. Common Duct: Normal caliber. 4 mm. Gallbladder: No stones. No wall thickening. No pericholecystic fluid. Pancreas: Unremarkable. Right kidney: Unremarkable. Retrohepatic IVC: Unremarkable. IMPRESSION: 1. Hepatomegaly, with steatosis and/or hepatocellular disease. 2. No acute abnormality. Reviewed, dictated and finalized at location R.
== END 2025-08-29 08:07 | disposition home or self-care (01) ==
PROVIDERS: PCP Nurse Practitioner Adult Health; Visit Provider Nurse Practitioner Adult Health
DX: R74.8 Abnormal levels of other serum enzymes (principal); K76.0 Fatty (change of) liver, not elsewhere classified
CPT/HCPCS: 76705

== ENCOUNTER 2025-10-03 07:38 | Outpatient (CLI) | payer MEDICARE, SELFPAY ==
--- OUTSIDE RECORDS SUMMARY | 2025-10-03 07:41 | XMS_ITS | Clinical Summary ---
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 Room: [facility] ENDOSCOPY ROOM 1 Note Status: Finalized Patient [...] under direct vision. The Pediatric Colonoscope PCF-H190L [id number] was introducedthrough the anus and advanced to [...] organs K64.8, Other hemorrhoids CPT copyright 2020 [place] [employer]. All rights reserved. The codes documented in this report are preliminary and upon nurse epidemiologist reviewmay be revised to meet current compliance requirements. Recognized by the [place] [employer] for Gastrointestinal [employer] for promoting quality in endoscopy Elsa Chambers MD ENDOSCOPY PROCEDURES Final Result * PSA screen (07/16/2017 7:43 AM CDT) PSA 0.6 < OR = 4.0 ng/mL LILIANA ALMANZAR - PAT Comment: The total PSA [...] Performing Organization Information: Site ID: PAT Name: Liliana Diopexa Address: [address] [place] [address] Director: Juan Ramon Verdugo D.O., MPH Adrian Arboleda LAB BLOOD ORDERABLES Final Resul t LILIANA ALMANZAR PAT PAT Mata from Last 3 Months or Most Recently Relevant to Health Maintenance Insurance [email or web address] [facility] T MEDICARE Advance Directives For more information, please contact: [phone] * Full Code (Latest Code Status on File) Date Activated Date Inactivated Comments 05/12/2024 8:56 AM 05/12/2024 2:35 PM * Full Code Date Activated Date Inactivated Comments 05/12/2024 8:56 AM 05/12/2024 8:56 AM * Full Code Date Activated Date Inactivated Comments 08/25/2018 8:46 AM 08/25/2018 12:52 PM * Full Code Date Activated Date Inactivated Comments 08/25/2018 8:46 AM 08/25/2018 8:46 AM Care Teams Management Accounts Manager Relationship Specialty Start Date End Date Maribel Castillo NP PCP - General Nurse Practitioner 05/26/18
--- OUTSIDE RECORDS SUMMARY | 2025-10-03 07:41 | XMS_ITS | Clinical Summary ---
Author Organization [facility] Address [address] [place] [address] Care Team Providers Care Hat Liner Name Role Phone Unavailable Primary Care Provider [...] AQ) 55 mcg nasal spray Administer 1 [place] in each nostril daily. Active cetirizine (ZyrTEC) [...] Encounters Date Type Department Care Team Description 08/24/2025 External Device Data [facility]STRACTION Provider, Abstract 07/12/2025 External Device Data [facility]STRACTION Provider, [...] Comments Blood Pressure 126/83 12/14/2024 1:12 PM [facility] Pulse 87 12/14/2024 1:12 PM [facility] Temperature 36.6 C (97.8 F) 12/14/2024 1:12 PM [facility] Respiratory Rate 16 12/14/2024 1:12 PM [facility] Oxygen Saturation 97% 12/14/2024 1:12 PM [facility] Inhaled Oxygen Concentration - - Weight 92.5 kg (204 lb) 12/14/2024 1:12 PM [facility] Height 180.3 cm (5' 11) 10/06/2023 2:48 PM [facility] Body Mass Index 28.45 10/06/2023 2:48 PM [facility] Plan of Treatment Upcoming Encounters Date Type Department Care Team (Late st Contact Info) Description 12/14/2025 1:15 PM [facility] Office Visit [facility] [address] [facility] [address] [place] [address] Larry Villanueva MD [address] [facility] [address] [place] [address] Health Maintenance Due Date Last [...] Colorectal Cancer Screening 05/12/[address] [facility]
--- OUTSIDE RECORDS SUMMARY | 2025-10-03 07:41 | XMS_ITS | Clinical Summary ---
Author Organization [facility] Address [facility]ly [facility] [place] [address] Care Team Providers Care Cafeteria Supervisor Name Role Phone Fatuma Portillo [facility] Primary Care Provider + Allergies No known [...] Wellness Visit 2020 COVID-19 Vaccine ( season) 2025 02/14/2021, 02/07/2021, 01/17/2021, Additional history exists Influenza Adult (#1) 2025 08/03/2022, 09/01/2020, 10/09/2019, Additional history exists Pneumococcal Vaccine: 50+ Years (3 of 3 - PCV20 or PCV21) 08/06/2026 08/06/2021, 11/30/2019 DTaP, Tdap and Td Vaccines (2 - Td or Tdap) 07/10/2027 07/10/2017 RSV Immunization or 60+ Years (1 - 1-dose 75+ series) 2030 Hepatitis A Vaccines Aged Out No long er eligible based on patient's age to complete this topic Meningococcal B Vaccine Aged Out No l onger eligible based on patient's age to complete this topic Meningococcal Vaccine Aged Out No yareli jarod eligible based on patient's age to complete this topic RSV Immunizations Under 20 Months Aged Out No longer eligible based on patient's age to complete this topic Insurance [employer] MEDICARE Care Teams Cafeteria Supervisor Relationship Specialty Start Date End Date Fatuma Portillo, COMMODITY MANAGER- [address] [place] [id number] PCP - General NURSE PRACTITIONER 04/29/23
[2025-10-03 19:57] LABS: Alanine Aminotransferase 30 U/L (6-50); Albumin Level 4.2 g/dL (3.5-5.1); Alkaline Phosphatase 58 U/L (38-126); Aspartate Amino Transferase 45 U/L (17-59); Bilirubin,Total 0.8 mg/dL (0.2-1.3); Total Protein 7.2 g/dL (6.3-8.2)
== END 2025-10-03 07:39 | disposition home or self-care (01) ==
PROVIDERS: PCP Nurse Practitioner Adult Health; Visit Provider Nurse Practitioner Adult Health
DX: R74.8 Abnormal levels of other serum enzymes (principal)
CPT/HCPCS: 36415; 80076